=== PATIENT | female | born 1975 | race Caucasian/White ===

== ENCOUNTER → 2024-05-15 10:57 | Outpatient (AMB) | payer OTHER, SELFPAY ==
[2024-05-15 11:05] VITALS: BMI 28.0
--- NOTE | 2024-05-15 11:05 | AM.OFFVISNUR ---
Vital Signs 05/15/24 11:05 Height 5 ft 5 in Weight 168 lb 8 oz BMI 28.0 Intake Visit Reasons: DEPO Allergies seafood Allergy (Mild, Verified 05/07/24 10:33) Anaphylaxis treenuts Allergy (Mild, Uncoded 05/07/24 10:33) rash, anaphylaxis Nursing Note Renee is here today for her scheduled Depo-provera inj. She denies any problems or concerns. AG scheduled on 06/19/24 with AGNIESZKA Harris. Follow up in 12 wks for next inj. Office Procedures Depo Questionnaire If YES to any of the following questions, please consult a provider. Date of last injection: 05/15/24 Date of last gynecology exam: 06/07/23 Menstrual pattern since last injection has been: Not Applicable Irregular bleeding?: No Breast lumps or other breast changes?: No Changes in weight or appetite?: Yes (lost weight) Depression or changes in mood?: No Abnormal hair growth or loss?: No Skin problems (rash, acne, discoloration)?: No Pain at the injection site?: No Headaches?: No Nervousness?: No Abdominal pain or cramping?: No Dizziness or nausea?: No Fatigue or weakness?: No Decrease in sexual drive?: No Chest pain or shortness of breath?: No Swelling in arms or legs?: No Form completed by?: Paul Siu LPN Office Meds Depo-Provera 150 mg/mL intramuscular syringe Performing Provider: Bettina Harris CNM Performing Location: [facility] Administered by: Joana Siu LPN on 05/15/24 11:05 Dose Route Admin Location Dispensed Lot Number Expiration Date [facility] Insurance Verifier 150 mg IM rt. deltoid 1 mL [id number] 06/26/26 07592-708-67 [facility] Assessment & Plan Assessment & Plan Orders: Orders AMB Medroxyprogesterone Injection Patient Supplied Today Z30.42 - Encounter for surveillance of injectable contraceptive Medications: New Depo-Provera (medroxyprogesterone) 150 mg IM ONCE 1 mL 0RF NS Z30.42 - Encounter for surveillance of injectable contraceptive Coding Level of Care Code Established Pt Est Pt Level 1 (54574) Patient Type Established History Problem Focused Exam Problem Focused Medical Decision Making Straight Forward Time Spent (min) 20
--- OUTSIDE RECORDS SUMMARY | 2024-05-15 13:11 | XMS_ITS | Encounter Summary ---
Author Organization [facility] Address [address] [place] [address] Care Team Providers Care Supervisor Lens Generating Name Role Phone Reyna Catalan MD Primary Care Prov ider [facility], Pcp Primary Care Provider Unavailabl e Reason for Visit * Reason Onset Date Comments Faxed Refill 10/01/2021 Encounter Details Date Type Department Care Team Description 10/01/2021 Refill Adult Medicine [address] [address] Raissa Peterson PA-C Faxed Refill Social History Tobacco Use Types Packs/Day Years Used Date Smoking Tobacco: Never Smokeless Tobacco: Never Alcohol Use Standard Drinks/Week Comments No 0 (1 standard drink = 0.6 oz pur e alcohol) Sex Assigned at Date Recorded Not on file Job Start Date Occupation Industry Not on file Not on file Not on file documented as of this encounter Miscellaneous Notes * Telephone Encounter - Dee Pham - 10/04/2021 2:47 PM EDT Lab Results Component Value Date NA 139 08/24/2020 K 4.0 08/24/2020 CO2 30 08/24/2020 CL 106 08/24/2020 BUN 15 08/24/2020 CREAT 0.68 08/24/2020 GLU 109 11/03/2020 CA 9.2 08/24/2020 GFR > 60 08/24/2020 Pt will be short prior to visit * Telephone Encounter - Dee Pham - 10/01/2021 10:20 AM EDT Appt on 10/11 called to verify pt will not have enough until seen Last rx 09/07 x 30 (if she does refills can be done at visit) Ext [phone] * Telephone Encounter - Arlene Camp - 10/01/2021 9:46 AM EDT Patient would like script to be: E-PRESCRIBED/FAXED TO PHARMACY WHEN WAS THE PATIENT'S LAST APPOINTMENT IN ADULT MEDICINE? 08/24/21 WHEN WAS THE LAST TIME THE PATIENT SAW THEIR PCP? 07/09/[address] Daisy Sylvester Does patient have an upcoming appointment? Yes 10/11/21 (THE MEDICATION REQUESTED IS ON THE MED LIST ABOVE) All of the medications requested were on the CURRENT MEDS list Did you check the Pharmacy information above?: YES Patient wants: 30 -day supply Is this a mail order prescription request ? NO If the refill is from a FAXED refill request what is the RX # listed on the fax? [id number] Patients current insurance carrier is: Payor: KAVITA / Plan: PPO $0 WANDA [id number] / Product Type: PPO [id number] documented in this encounter Plan of Treatment Not on file documented as of this encounter Visit Diagnoses Not on filedocumented in this encounter Care Teams Supervisor Lens Generating Relationship Specialty Start Date End Date Reyna Catalan MD [address] [place] [address] PCP - General Internal Medicine 09/27/21 06/12/23 [facility], Pcp [address] [place] [address] PCP - General Internal Medicine 06/13/23 documented as of this encounter
--- OUTSIDE RECORDS SUMMARY | 2024-05-15 13:11 | XMS_ITS | Encounter Summary ---
Author Organization [facility] Address [address] [place] [address] Care Team Providers Care Wood Preparation Supervisor Name Role Phone Nguyen Banks MD Primary Care Provider Saravanan Beckett MD Primary Care Provider [phone] Reyna Catalan MD Primary Care Prov ider Evan Cervantes Primary Care Provider [phone] [facility], Pcp Primary Care Provider Unavailalexis gonzalez Reason for Visit * Reason Onset Date Comments refill request 10/05/2016 Encounter Details Date Type Department Care Team Description 10/05/2016 Refill [facility] [address] [place], [place] [id number] Brenda Santoro MD refill request Social History Tobacco Use Types Packs/Day Years [...] encounter Miscellaneous Notes * Telephone Encounter - Anastasia Aiken - 10/05/2016 12:35 PM EDT WHEN WAS THE PATIENTS LAST ANNUAL BRIDGE MANAGER EXAM? Post 11/17/15 Does patient have an upcoming appointment? Yes 11/25/16 (THE MEDICATION REQUESTED IS ON THE MED LIST ABOVE) Did you check the Pharmacy information above?: YES Indicate how soon the patient needs the script: BY THE END OF THE DAY Patient would like script to be: E-PRESCRIBED/FAXED TO PHARMACY Is the doctor here today?: YES Can the message wait until the doctor returns?: NO Has the patient been told that the prescription will not be filled until the end of the day? NO Payor: KAVITA / Plan: PPO $0 WANDA [id number] / Product Type: PPO [id number] documented in this encounter Plan of Treatment Not on file documented as of this encounter Visit Diagnoses Diagnosis Surveillance of previously prescribed contraceptive method Contraceptive surveillance, unspecified documented in this encounter Care Teams Wood Preparation Supervisor Relationship Specialty Start Date End Date Nguyen Banks MD PCP - General Internal Medicine 02/26/15 06/03/20 Saravanan Velarde MD [address] [place] [address] PCP - General Internal Medicine 06/04/20 09/06/21 Reyna Catalan MD [address] [place] [address] PCP - General Internal Medicine 09/27/21 06/12/23 Evan Cervantes [address] [place] [address] PCP - General Internal Medicine 09/07/21 09/26/21 Faith Stephens [address] [place] [address] PCP - General Internal Medicine 06/13/23 documented as of this encounter
--- OUTSIDE RECORDS SUMMARY | 2024-05-15 13:11 | XMS_ITS | Encounter Summary ---
Author Organization [facility] Address [address] [place] [address] Care Team Providers Care Safety Associate Name Role Phone Reyna Catalan MD Primary Care Prov ider [facility], Pcp Primary Care Provider Unavailabl e Reason for Visit * Reason Onset Date Comments E-prescribe Rx Request refill request 05/02/2023 Encounter Details Date Type Department Care Team Description 05/02/2023 Refill OBGYN - [place] [address] [place] [address] Albert Hopkins DO E-prescribe Rx Request; refill request Social History Tobacco Use Types [...] encounter Miscellaneous Notes * Telephone Encounter - Lelo Velez - 05/02/2023 8:42 AM EST WHEN WAS THE PATIENTS LAST ANNUAL PARADI TENDER EXAM? 03/11/22 Does patient have an upcoming appointment? No - SHE IS MOVING OUT OF [facility] AND WILL NOT NEED ANY ADDITIONAL MEDICATION. PLEASE CLOSE REQUEST (THE MEDICATION REQUESTED IS ON THE MED LIST ABOVE) Did you check the Pharmacy information above?: YES Indicate how soon the patient needs the script: BY THE END OF THE DAY Patient would like script to be: E-PRESCRIBED/FAXED TO PHARMACY Is the doctor here today?: NO Can the message wait until the doctor returns?: NO Has the patient been told that the prescription will not be filled until the end of the day? NO Payor: KAVITA / Plan: PPO $0 WANDA [id number] / Product Type: PPO [id number] documented in this encounter Plan of Treatment Not on file documented as of this encounter Visit Diagnoses Diagnosis Encounter for surveillance of injectable contraceptive Surveillance of other previously prescribed contraceptive method documented in this encounter Care Teams Safety Associate Relationship Specialty Start Date End Date Reyna Catalan MD [address] [place] [address] PCP - General Internal Medicine 09/27/21 06/12/23 [facility] [address] [address] PCP - General Internal Medicine 06/13/23 documented as of this encounter
--- OUTSIDE RECORDS SUMMARY | 2024-05-15 13:11 | XMS_ITS | Encounter Summary ---
Author Organization [facility] Address [address] [place] [address] Care Team Providers Care Singing Telegram Performer Name Role Phone Nguyen Banks MD Primary Care Provider Saravanan Beckett MD Primary Care Provider [phone] Reyna Catalan MD Primary Care Prov ider Evan Cervantes Primary Care Provider [phone] [facility], Pcp Primary Care Provider Angelina gonzalez Encounter Details Date Type Department Care Team Description 03/16/2015 Release of Information Medical Records [address] [place] [address] Abstract, Provider Social History Tobacco Use Types Packs/Day Years Used Date Smoking Tobacco: Never Smokeless Tobacco: Never Alcohol Use Standard Drinks/Week Comments No 0 (1 standard drink = 0.6 oz pur e alcohol) Sex Assigned at Date Recorded Not on file Job Start Date Occupation Industry Not on file Not on file Not on file documented as of this encounter Plan of Treatment Not on file documented as of this encounter Visit Diagnoses Not on filedocumented in this encounter Care Teams Singing Telegram Performer Relationship Specialty Start Date End Date Nguyen Banks MD PCP - General Internal Medicine 02/26/15 06/03/20 Saravanan Velarde MD [address] [place] [address] PCP - General Internal Medicine 06/04/20 09/06/21 Reyna Catalan MD [address] [place] [address] PCP - General Internal Medicine 09/27/21 06/12/23 Evan Cervantes [address] [place] [address] PCP - General Internal Medicine 09/07/21 09/26/21 [facility], Pcp [address] [place] [address] PCP - General Internal Medicine 06/13/23 documented as of this encounter
--- OUTSIDE RECORDS SUMMARY | 2024-05-15 13:11 | XMS_ITS | Encounter Summary ---
Author Organization [facility] Address [address] [place] [address] Care Team Providers Care Talent Acquisition Relationship Manager Name Role Phone Nguyen Banks MD Primary Care Provider Saravanan Beckett MD Primary Care Provider [phone] Reyna Catalan MD Primary Care Prov ider Evan Cervantes Primary Care Provider [phone] [facility], Pcp Primary Care Provider Angelina gonzalez Encounter Details Date Type Department Care Team Description 08/26/2016 Installation Tech Report Medical Records [address] [place] [address] Rehab, [facility] [address] [place] [address] Social History Tobacco Use Types Packs/Day Years [...] on filedocumented in this encounter Care Teams Talent Acquisition Relationship Manager Relationship Specialty Start Date End Date Nguyen Banks MD PCP - General Internal Medicine 02/26/15 06/03/20 Saravanan Velarde MD [address] [place] [address] [phone] PCP - General Internal Medicine 06/04/20 09/06/21 Reyna Catalan MD [address] [place] [address] [phone] PCP - General Internal Medicine 09/27/21 06/12/23 Evan Cervantes [address] [place] [address] PCP - General Internal Medicine 09/07/21 09/26/21 [facility], Faith [address] [place] [address] PCP - General Internal Medicine 06/13/23 documented as of this encounter
--- OUTSIDE RECORDS SUMMARY | 2024-05-15 13:11 | XMS_ITS | Encounter Summary ---
Author Organization [facility] Address [address] [place] [address] Care Team Providers Care Town Clerk Name Role Phone Nguyen Banks MD Primary Care Provider Saravanan Beckett MD Primary Care Provider [phone] Reyna Catalan MD Primary Care Prov ider Evan Cervantes Primary Care Provider [phone] [facility], Pcp Primary Care Provider Angelina gonzalez Encounter Details Date Type Department Care Team Description 07/08/2015 Telescope Maintenance Report Medical Records [address] [place] [address] Social History Tobacco Use Types Packs/Day Years [...] on filedocumented in this encounter Care Teams Town Clerk Relationship Specialty Start Date End Date Nguyen Banks MD PCP - General Internal Medicine 02/26/15 06/03/20 Saravanan Velarde MD [address] [place] [address] PCP - General Internal Medicine 06/04/20 09/06/21 Reyna Catalan MD [address] [place] [address] PCP - General Internal Medicine 09/27/21 06/12/23 Evan Cervantes [address] [place] [address] PCP - General Internal Medicine 09/07/21 09/26/21 [facility], Pcp [address] [place] [address] PCP - General Internal Medicine 06/13/23 documented as of this encounter
--- OUTSIDE RECORDS SUMMARY | 2024-05-15 13:11 | XMS_ITS | Encounter Summary ---
Author Organization [facility] Address [address] [place] [address] Care Team Providers Care Autism Specialist Name Role Phone Nguyen Banks MD Primary Care Provider Saravanan Beckett MD Primary Care Provider [phone] Reyna Catalan MD Primary Care Prov ider Evan Cervantes Primary Care Provider [phone] [facility], Pcp Primary Care Provider Angelina gonzalez Encounter Details Date Type Department Care Team Description 05/28/2015 Zika Virus Medical Records [address] [place] [address] Abstract, Provider Social History Tobacco Use Types [...] on filedocumented in this encounter Care Teams Autism Specialist Relationship Specialty Start Date End Date Nguyen Banks MD PCP - General Internal Medicine 02/26/15 06/03/20 Saravanan Velarde MD [address] [place] [address] PCP - General Internal Medicine 06/04/20 09/06/21 Reyna Catalan MD [address] [place] [address] PCP - General Internal Medicine 09/27/21 06/12/23 Evan Cervantes [address] [place] [address] PCP - General Internal Medicine 09/07/21 09/26/21 [facility], Pcp [address] [place] [address] PCP - General Internal Medicine 06/13/23 documented as of this encounter
--- OUTSIDE RECORDS SUMMARY | 2024-05-15 13:11 | XMS_ITS | Encounter Summary ---
Author Organization [facility] Address [address] [place] [address] Care Team Providers Care Director Of Officiating Name Role Phone Nguyen Banks MD Primary Care Provider Saravanan Beckett MD Primary Care Provider [phone] Reyna Catalan MD Primary Care Prov ider Evan Cervantes Primary Care Provider [phone] [facility], Pcp Primary Care Provider Angelina gonzalez Encounter Details Date Type Department Care Team Description 10/06/2015 Hospital Medical Records [address] [place] [id number] [place] [address] Social History Tobacco Use Types Packs/Day Years [...] on filedocumented in this encounter Care Teams Director Of Officiating Relationship Specialty Start Date End Date Nguyen Banks MD PCP - General Internal Medicine 02/26/15 06/03/20 Saravanan Velarde MD [address] [place] [address] [phone] PCP - General Internal Medicine 06/04/20 09/06/21 Reyna Catalan MD [address] [place] [address] [phone] PCP - General Internal Medicine 09/27/21 06/12/23 Evan Cervantes [address] [place] [address] PCP - General Internal Medicine 09/07/21 09/26/21 [facility], Pcp [address] [place] [address] PCP - General Internal Medicine 06/13/23 documented as of this encounter
--- OUTSIDE RECORDS SUMMARY | 2024-05-15 13:11 | XMS_ITS | Encounter Summary ---
Author Organization [facility] Address [address] [place] [address] Care Team Providers Care Piledriver Carpenter Name Role Phone Jack Seymour MD Primary Care Provider Unavail able Nguyen Banks MD Primary Care Provider UnavailSaravanan Gallardo MD Primary Care Provider [phone] Reyna Catalan MD Primary Care Prov ider Evan Cervantes Primary Care Provider [facility] Encounter Details Date Type Department Care Team Description 08/05/2013 Release of Information Medical Records [address] [place] [address] Abstract, Provider Social History Tobacco Use Types [...] on filedocumented in this encounter Care Teams Piledriver Carpenter Relationship Specialty Start Date End Date Jack Seymour MD PCP - General 11/27/1994 02/25/15 Nguyen Banks MD PCP - General Internal Medicine 02/26/15 06/03/20 Saravanan Velarde MD [address] [place] [address] PCP - General Internal Medicine 06/04/20 09/06/21 Reyna Catalan MD [address] [place] [address] PCP - General Internal Medicine 09/27/21 06/12/23 Evan Cervantes [address] [place], [place] [phone] PCP - General Internal Medicine 09/07/21 09/26/21 [facility], Pcp [address] [place] [address] PCP - General Internal Medicine 06/13/23 documented as of this encounter
--- OUTSIDE RECORDS SUMMARY | 2024-05-15 13:11 | XMS_ITS | Encounter Summary ---
Author Organization [facility] Address [address] [place] [address] Care Team Providers Care Equipment Operator/Laborer Name Role Phone Nguyen Banks MD Primary Care Provider Saravanan Beckett MD Primary Care Provider [phone] Reyna Catalan MD Primary Care Prov ider Evan Cervantes Primary Care Provider [phone] [facility], Pcp Primary Care Provider Angelina gonzalez Encounter Details Date Type Department Care Team Description 04/10/2019 Orders Only SALES & SERVICE ASSOCIATE - [address] [address] Pau Simeon CNM [address] [place] [address] Encounter for surveillance of injectable contraceptive Social History Tobacco Use Types Packs/Day Years [...] method documented in this encounter Care Teams Equipment Operator/Laborer Relationship Specialty Start Date End Date Nguyen Banks MD PCP - General Internal Medicine 02/26/15 06/03/20 Saravanan Velarde MD [address] [place] [address] [phone] PCP - General Internal Medicine 06/04/20 09/06/21 Reyna Catalan MD [address] [place] [address] PCP - General Internal Medicine 09/27/21 06/12/23 Evan Cervantes [address] [place] [address] PCP - General Internal Medicine 09/07/21 09/26/21 [facility], Pcp [address] [place] [address] PCP - General Internal Medicine 06/13/23 documented as of this encounter
--- OUTSIDE RECORDS SUMMARY | 2024-05-15 13:11 | XMS_ITS | Encounter Summary ---
Author Organization [facility] Address [address] [place] [address] Care Team Providers Care Candy Rolling Machine Operator Name Role Phone Reyna Catalan MD Primary Care Prov ider [facility], Pcp Primary Care Provider Unavailabl e Reason for Visit * Reason Comments E-prescribe Rx Request Encounter Details Date Type Department Care Team Description 05/22/2023 Refill Adult Medicine [facility] [address] [place] [address] Reyna Catalan MD [address] [place] [address] E-prescribe Rx Request Social History Tobacco Use Types Packs/Day Years [...] encounter Miscellaneous Notes * Telephone Encounter - Lynn Mendoza - 05/25/2023 1:40 PM EDT Please complete and send to POD when appt is booked * Telephone Encounter - Lynn Mendoza - 05/25/2023 1:39 PM EDT Patient would like script to be: E-PRESCRIBED/FAXED TO PHARMACY WHEN WAS THE PATIENT'S LAST APPOINTMENT IN ADULT MEDICINE? 01/20/23 WHEN WAS THE LAST TIME THE PATIENT SAW THEIR PCP? Same as above Does patient have an upcoming appointment? Patient was sent a My Chart request to set up an appointment as they are due. (THE MEDICATION REQUESTED IS ON THE MED LIST ABOVE) All of the medications requested were on the CURRENT MEDS list Did you check the Pharmacy information above?: YES Patient wants: 90 -day supply Is this a mail order prescription request ? NO If the refill is from a FAXED refill request what is the RX # listed on the fax? N/A Patients current insurance carrier is: Payor: KAVITA / Plan: PPO $0 WANDA [id number] / Product Type: PPO [id number] documented in this encounter Plan of Treatment Not on file documented as of this encounter Visit Diagnoses Not on filedocumented in this encounter Care Teams Candy Rolling Machine Operator Relationship Specialty Start Date End Date Reyna Catalan MD [address] [place] [address] PCP - General Internal Medicine 09/27/21 06/12/[address] [address] PCP - General Internal Medicine 06/13/23 documented as of this encounter
--- OUTSIDE RECORDS SUMMARY | 2024-05-15 13:11 | XMS_ITS | Encounter Summary ---
Author Organization [facility] Address [address] [place] [address] Care Team Providers Care Watchmaking Teacher Name Role Phone Nguyen Banks MD Primary Care Provider Saravanan Beckett MD Primary Care Provider Reyna Catalan MD Primary Care Prov ider Evan Cervantes Primary Care Provider [phone] [facility], Pcp Primary Care Provider Angelina gonzalez Encounter Details Date Type Department Care Team Description 05/06/2015 Veteran Appeals Reviewer Report Medical Records [address] [place] [address] Mckinley Menendez [address] [place] [address] [id number] Social History Tobacco Use Types Packs/Day Years [...] on filedocumented in this encounter Care Teams Watchmaking Teacher Relationship Specialty Start Date End Date Nguyen Banks MD PCP - General Internal Medicine 02/26/15 06/03/20 Saravanan Velarde MD [address] [place] [address] [phone] PCP - General Internal Medicine 06/04/20 09/06/21 Reyna Catalan MD [address] [place] [address] PCP - General Internal Medicine 09/27/21 06/12/23 Evan Cervantes [address] [place] [address] [phone] PCP - General Internal Medicine 09/07/21 09/26/21 [facility], Pcp [address] [place] [address] PCP - General Internal Medicine 06/13/23 documented as of this encounter
--- OUTSIDE RECORDS SUMMARY | 2024-05-15 13:11 | XMS_ITS | Encounter Summary ---
Author Organization [facility] Address [address] [place] [address] Care Team Providers Care Coronary Care Unit Nurse Name Role Phone Saravanan Velarde MD Primary Care Provider [phone] Reyna Catalan MD Primary Care Prov ider Evan Cervantes Primary Care Provider [phone] [facility], Pcp Primary Care Provider Unavailabl e Reason for Visit * Reason Onset Date Comments refill request 11/19/2020 Encounter Details Date Type Department Care Team Description 11/19/2020 Refill OBGYN - [address] [address] Albert oHpkins DO refill request Social History Tobacco Use Types Packs/Day Years Used Date Smoking Tobacco: Never Smokeless Tobacco: Never Alcohol Use Standard Drinks/Week Comments No 0 (1 standard drink = 0.6 oz pur e alcohol) Sex Assigned at Date Recorded Not on file Job Start Date Occupation Industry Not on file Not on file Not on file COVID-19 Exposure Response Date Recorded In the last month, have you been in contact with someone who was confirmed or suspected to have Coronavirus / COVID-19? No / Unsure 11/17/2020 1:05 PM EDT documented as of this encounter Miscellaneous Notes * Telephone Encounter - Anastasia Pruitt - 11/19/2020 11:53 AM EDT WHEN WAS THE PATIENTS LAST ANNUAL DATA MANAGEMENT ENGINEER EXAM? 02/06/2021 Does patient have an upcoming appointment? Yes 02/05/2021 (THE MEDICATION REQUESTED IS ON THE MED LIST ABOVE) Did you check the Pharmacy information above?: YES Indicate how soon the patient needs the script: PHU Patient would like script to be: E-PRESCRIBED/FAXED TO PHARMACY Is the doctor here today?: YES Can the message wait until the doctor returns?: NO Has the patient been told that the prescription will not be filled until the end of the day? YES Payor: KAVITA / Plan: PPO $0 WANDA [id number] / Product Type: PPO [id number] documented in this encounter Plan of Treatment Not on file documented as of this encounter Visit Diagnoses Diagnosis Encounter for surveillance of injectable contraceptive Surveillance of other previously prescribed contraceptive method documented in this encounter Care Teams Coronary Care Unit Nurse Relationship Specialty Start Date End Date Saravanan Velarde MD [address] [place] [address] PCP - General Internal Medicine 06/04/20 09/06/21 Reyna Catalan MD [address] [place] [id number] PCP - General Internal Medicine 09/27/21 06/12/23 Evan Cervantes [address] [place] [address] PCP - General Internal Medicine 09/07/21 09/26/21 Faith Stephens [address] [place] [id number] PCP - General Internal Medicine 06/13/23 documented as of this encounter
--- OUTSIDE RECORDS SUMMARY | 2024-05-15 13:11 | XMS_ITS | Encounter Summary ---
Author Organization [facility] Address [address] [place] [address] Care Team Providers Care Pattern Chain Maker Supervisor Name Role Phone Jack Seymour MD Primary Care Provider Unavail able Nguyen Banks MD Primary Care Provider UnavailSaravanan Gallardo MD Primary Care Provider [phone] Reyna Catalan MD Primary Care Prov ider Evan Cervantes Primary Care Provider [phone] [facility] Encounter Details Date Type Department Care Team Description 06/30/2013 [facility] Medical Records [address] [place], [place] [id number] [facility] Social History Tobacco Use Types Packs/Day Years [...] on filedocumented in this encounter Care Teams Pattern Chain Maker Supervisor Relationship Specialty Start Date End Date Jack Seymour MD PCP - General 11/27/1994 02/25/15 Nguyen Banks MD PCP - General Internal Medicine 02/26/15 06/03/20 Saravanan Velarde MD [address] [place] [address] [id number] PCP - General Internal Medicine 06/04/20 09/06/21 Reyna Catalan MD [address] [place] [id number] PCP - General Internal Medicine 09/27/21 06/12/23 Evan Cervantes [address] [place], [place] [phone] PCP - General Internal Medicine 09/07/21 09/26/21 [facility], Pcp [address] [place] [address] PCP - General Internal Medicine 06/13/23 documented as of this encounter
== END ==
LOC: HO.HWS 10:57
PROVIDERS: PCP Family Medicine; Visit Provider Advanced Practice Midwife
DX: Z30.42 Encounter for surveillance of injectable contraceptive (principal)

== ENCOUNTER → 2024-05-15 10:57 | Outpatient (BNVA) | payer OTHER, SELFPAY | PROVIDERS: PCP Family Medicine; Visit Provider Advanced Practice Midwife | DX: Z30.42 Encounter for surveillance of injectable contraceptive (principal) | CPT/HCPCS: 96372; 99211; J1050 ==

== ENCOUNTER 2024-05-28 11:40 | Outpatient (AMB) | payer OTHER, SELFPAY ==
--- NOTE | 2024-05-28 11:41 | A.OFFVIS_ITS ---
Vital Signs 05/28/24 11:53 Height 5 ft 5 in Weight 165 lb 12.602 oz BMI 27.6 BP 126/68 Blood Pressure Location Rt brachial Position Sitting Pulse 64 Pulse Source Pulse Oximeter Pulse Oximetry (%) 99 Oxygen Delivery Method Room Air Intake Visit Reasons: pre colonoscopy Intake Note: NEW PATIENT for [place] screening, initial. Chief Complaint; FMHx Maternal Grandmother. No GI concerns at this time. Merchandise Carrier Required: No Accompanied by: Self / Same As Patient Allergies tree nut Allergy (Severe, Verified 05/28/24 11:42) Anaphylaxis seafood Allergy (Mild, Verified 05/07/24 10:33) Anaphylaxis HPI HPI pre colonoscopy: Details: 46 year old? female with past medical history of asthma, hypertension is here today for pre colonoscopy screening.? Patient was sent to us by her PCP.? This is her first colonoscopy screening.? Patient denies any gastrointestinal symptoms in the past or at present.? Patient reports maternal grandmother was diagnosed with CRC. Patient never had anesthesia in the past. Negative for history of sleep apnea.? Denies any history of cardiac, renal, pulmonary, or hepatic disease.?? No history of infectious? diseases like hepatitis A, B, C, HIV or tuberculosis.? Patient is not on any anticoagulation [facility] Medical History Depression Anxiety Acute eczema Gestational diabetes Arthritis High blood pressure Asthma Surgical History [place] teeth extracted Family History Mother Diabetes Endometrial cancer Father High blood pressure High cholesterol Diabetes Maternal Grandmother Colon cancer Social History Household Members: Spouse and Children Housing: House Are you a primary critical care nurse specialist to a significant other at home: No Do you presently have visiting nurse or other home services: No 75 years or older and lives alone: No Alcohol intake: never Patient Tobacco Use Status: Never used Tobacco e-Cigarette/Vaping Use: Never Used service: No Current occupational status: employed Current occupation: book keeper Cognitive needs: No Hearing needs: No Vision needs: No Female Reproductive History Menstrual Age of Menarche: 12 Review of Systems Const Denies weight gain and Denies weight loss ENT Reports no additional complaints, Denies dysphagia and Denies odynophagia Card Reports no additional complaints Resp Reports no additional complaints GI Denies abdominal pain, Denies belching, Denies melena, Denies bloating, Denies change in bowel habits, Denies dysphagia, Denies excessive flatus, Denies dyspepsia, Denies heartburn, Denies diarrhea, Denies loose stools, Denies naus ea, Denies odynophagia and Denies vomiting Reports no additional complaints Musc Reports no additional complaints Neuro Reports no additional complaints Psych Reports no additional complaints Endo Reports no additional complaints Physical Exam Vital Signs: Last Vital Signs Pulse 64 05/28/24 11:53 BP 126/68 05/28/24 11:53 Pulse Ox 99 05/28/24 11:53 Oxygen Delivery Method Room Air 05/28/24 11:53 BMI result Body Mass Index 27.6 Const General: healthy appearing, no acute distress and well developed Nutritional Appearance: well nourished Orientation/consciousness: patient oriented x3 Resp Effort & Inspection: normal respiratory effort, able to speak in complete sentences, no tracheal deviation and symmetric chest movement Auscultation: clear to auscultation bilaterally Cardio Rate: regular rate GI Inspection: Yes normal to inspection and No distended Palpation (GI): Soft to palpation, not firm, nontender and No hepatosplenomegaly present Auscultation: normal bowel sounds General: Yes no CVA tenderness Back/Spine/Pelvis Back: no CVA tenderness Skin General skin exam: elasticity normal, turgor normal and dry skin Neuro General: patient oriented x3 Psych Appearance: grossly normal Mental Status: mental status grossly normal Assessment & Plan Assessment & Plan (1) Screening for colon cancer: Code(s): Z12.11 - Encounter for screening for malignant neoplasm of colon Category: Medical Plan Patient denies any GI, cardiac or respiratory symptoms.? Never had anesthesia in the past.? Denies any history of sleep apnea.? No history infectious diseases in the past or present.? Not on any anticoagulation therapy.? Family history of CRC. Patient denies melena, hematochezia, unintentional weight loss or ribbon like stools.? Discussed at length the pre-procedure,? prep, diet & medications as well as what to expect prior, during and after the procedure.?? Stressed the importance of good bowel prep.? Recommended the use of Vaseline or Calmoseptine OTC & baby wipes with bowel movements to promote comfort.? ?Patient verbalizes understanding and agrees to plan of care.? She was given the opportunity to ask questions and all questions answered.? We will see her after the procedure.? Medications: New bisacodyl (Dulcolax (bisacodyl)) take 4 tabs at noon the day before your colonoscopy 20 mg (4 x 5 mg) PO ONCE 1 day 4 tabs 0RF Z12.11 - Encounter for screening for malignant neoplasm of colon polyethylene glycol 3350 (Miralax) As directed by gastroenterology department at [facility] 238 grams PO ONCE 238 grams 0RF Z12.11 - Encounter for screening for malignant neoplasm of colon Coding Level of Care Code New Pt Level 3 (45097) Diagnoses Screening for colon cancer Z12.11 Time Spent (min) 40 Comment 30 minutes spent with patient and additional 10 minutes spent reviewing her r ecords
[2024-05-28 11:53] VITALS: BP 126/68; PULSE 64; O2SAT 99; BMI 27.6
== END 2024-05-28 13:25 | disposition home or self-care (01) ==
LOC: HO.HGI 11:41
PROVIDERS: PCP Family Medicine; Visit Provider Nurse Practitioner Family
DX: Z01.818 Encounter for other preprocedural examination (principal); Z12.11 Encounter for screening for malignant neoplasm of colon
CPT/HCPCS: S0285

== ENCOUNTER → 2024-05-28 11:40 | Outpatient (BNVA) | payer OTHER, SELFPAY | PROVIDERS: PCP Family Medicine; Visit Provider Nurse Practitioner Family ==

== ENCOUNTER 2024-05-29 08:27 | Outpatient (REF) | payer OTHER, SELFPAY ==
[2024-05-29 11:59] LABS: Alanine Aminotransferase 16 U/L (0-31); Albumin Level 4.1 g/dL (3.5-5.0); Alkaline Phosphatase 48 U/L (39-117); Anion Gap 9 (12-20); Aspartate Amino Transferase 20 U/L (5-31); Bilirubin Total 0.7 mg/dL (0.0-1.0); Blood Urea Nitrogen 13 mg/dL (9-16); Calcium 9.3 mg/dL (8.4-10.2); Carbon Dioxide 26 mmol/L (22-29); Chloride 109 mmol/L (96-108); Cholesterol 144 mg/dL (<200); Estimated Glomerular Filt Rate > 60; Glucose Fasting 99 mg/dL (60-99); HDL Cholesterol 37 mg/dL (>40); LDL Cholesterol Calculated 98 mg/dL (<100); Potassium 4.1 mmol/L (3.3-5.1); Sodium 140 mmol/L (135-145); Total Protein 7.3 g/dL (6.5-8.0); Triglycerides 46 mg/dL (<150)
[2024-05-29 14:50] LABS: Creatinine Urine 220.74 mg/dL; Microalbum/Creatinine Ratio Ur 14.9 ug/mg cr (<30)
== END 2024-05-29 08:28 | disposition home or self-care (01) ==
LOC: HO.WFDLDS 08:27
PROVIDERS: Visit Provider Family Medicine
DX: Z00.00 Encounter for general adult medical examination without abnormal findings (principal); R73.03 Prediabetes; E78.00 Pure hypercholesterolemia, unspecified; I10 Essential (primary) hypertension
CPT/HCPCS: 36415; 80053; 80061; 82043; 82570

== ENCOUNTER 2024-05-29 11:32 | Outpatient (REF) | payer OTHER, SELFPAY | END 2024-05-29 11:33 | disposition home or self-care (01) | LOC: HO.MAMMO 11:32 | PROVIDERS: PCP Family Medicine; Visit Provider Family Medicine | DX: Z12.31 Encounter for screening mammogram for malignant neoplasm of breast (principal) | CPT/HCPCS: 77063; 77067 ==

== ENCOUNTER → 2024-05-29 11:45 | Outpatient (BNV) | payer OTHER, SELFPAY | PROVIDERS: PCP Family Medicine; Visit Provider Internal Medicine | DX: Z12.31 Encounter for screening mammogram for malignant neoplasm of breast (principal) | CPT/HCPCS: 77063; 77067 ==

== ENCOUNTER 2024-06-05 09:21 | Outpatient (AMB) | payer OTHER, SELFPAY ==
--- NOTE | 2024-06-05 09:23 | MHC.PC.OV ---
Vital Signs 06/05/24 09:28 Height 5 ft 5 in Weight 166 lb BMI 27.6 BP 116/68 Blood Pressure Location Lt brachial Position Sitting Respiration 14 Pulse 70 Pulse Source Pulse Oximeter Temp 98.5 F Temp Source Oral Pulse Oximetry (%) 98 Oxygen Delivery Method Room Air Intake Visit Reasons: f/u hypertension Intake Note: patient is scheduled for htn and lab review with pcp Electric Operator Required: No Allergies tree nut Allergy (Severe, Verified 06/05/24 09:23) Anaphylaxis seafood Allergy (Mild, Verified 06/05/24 09:23) Anaphylaxis Tobacco use date assessed: 04/18/23 Dental Screening Dental Screen Date: 04/18/23 HPI f/u hypertension HPI Details 48 y/o female presents to f/u hypertension. Blood pressure today 116/68, 70p. She is on atenolol 50mg daily, clonidine 0.1mg b.i.d. Labs drawn 05/29/24. Reviewed labs with pt. Triglycerides 46. TC 144. LDL 98. HDL low at 37. Prior A1c 5.9% 03/06/24. A1c today 06/05/24 is 5.9%. [facility] Medical History Depression Anxiety Acute eczema Gestational diabetes Arthritis High blood pressure Asthma Surgical History [place] teeth extracted Family History Mother Diabetes Endometrial cancer Father High blood pressure High cholesterol Diabetes Maternal Grandmother Colon cancer Social History Household Members: Spouse and Children Housing: House Are you a primary primary care provider to a significant other at home: No Do you presently have visiting nurse or other home services: No 75 years or older and lives alone: No Alcohol intake: never Patient Tobacco Use Status: Never used Tobacco e-Cigarette/Vaping Use: Never Used service: No Current occupational status: employed Current occupation: book keeper Cognitive needs: No Hearing needs: No Vision needs: No Female Reproductive History Menstrual Age of Menarche: 12 Questionnaire Thrive Questionnaire Date Thrive assessed: 02/29/24 I am a: Patient What is your living situation today?: I have a steady place to live Within the past 12 months, did the food you bought not last and you didn't have the money to get more?: Never true Within the past 12 months, did you worry whether your food would run out before you got money to buy more?: Never true Do you have trouble paying for medicines?: No Do you have trouble getting transportation to medical appointments?: No Do you have trouble paying your heating and electricity bill?: No Do you have trouble taking care of your child, family member or friend?: No Do you have trouble with day-to-day activities such as bathing, preparing meals, shopping, managing finances, etc.?: No Are you currently unemployed and looking for a job?: No Are you interested in more education?: No Please select the resources that you would like help with: None Currently or been in a relationship where the following occur: No concerns reported THRIVE Score: 0 AUDIT C Alcohol Use Questionnaire (AUDIT-C) 2. How many drinks containing alcohol do you have on a typical day when you are drinking?: 1 or 2 Total Score: 0 FRANNY-7 AMB Questionnaire FRANNY-7 Date FRANNY - 7 assessed: 04/18/23 Source: Developed by Drs. Ez Perera, Shila Delgado, Stephen Roque and colleagues, with an educational emily from [employer]. Review of Systems Const Denies chills, Denies fatigue, Denies fever(s), Denies headache(s) and Denies weakness ENT Denies dizziness and Denies headache(s) Card Denies dyspnea Resp Denies cough, Denies dyspnea, Denies wheezing and Denies other (shortness of breath) Musc Denies numbness and Denies tingling Neuro Denies dizziness, Denies headache(s), Denies numbness, Denies tingling and Denies weakness Psych Denies anxiety and Denies depression Endo Denies fatigue Aller/Immun Denies wheezing Physical exam (Primary Care) Vital Signs: Last Vital Signs Temp 98.5 F 06/05/24 09:28 Pulse 70 06/05/24 09:28 Resp 14 06/05/24 09:28 BP 116/68 06/05/24 09:28 Pulse Ox 98 06/05/24 09:28 Oxygen Delivery Method Room Air 06/05/24 09:28 BMI result Body Mass Index 27.6 Tobacco/Smoking Status: Tobacco use Status Tobacco use date assessed 04/18/23 06/05/24 09:24 Patient Tobacco Use Status Never used Tobacco 06/05/24 09:24 e-Cigarette/Vaping Use Never Used 06/05/24 09:24 Thrive Assessment: Date of Thrive Assessment Date Thrive assessed 02/29/24 06/05/24 09:24 Currently or been in a relationship where the following occur: No concerns reported Const General: well developed; No acute distress Nutritional Appearance: well nourished Orientation/consciousness: patient oriented x3 HENMT Head: Yes normocephalic and Yes atraumatic Eyes General: appearance normal, both eyes and all related structures Pupils: Equal, round and reactive pupils present EOM: EOMs intact bilaterally Resp Effort & Inspection: normal respiratory effort Neuro General: patient oriented x3 and gait normal Cranial nerves: Yes Equal, round and reactive pupils present Psych Affect: normal affect Coding Level of Care Code Est Pt Level 4 (75161) Diagnoses High blood pressure I10 Pre-diabetes R73.03 Elevated LDL cholesterol level E78.00 Low HDL (under 40) E78.6 Assessment & Plan Assessment & Plan (1) High blood pressure: Code(s): I10 - Essential (primary) hypertension Category: Medical Plan: She?is?on?atenolol. Blood?pressure?116/68.??Good?control.??Goal?is?less?than?140/90 Continue?current?medication (2) Pre-diabetes: Code(s): R73.03 - Prediabetes Category: Medical Plan: A1c?had?risen?from?5.7%?to?5.9%?at?last?measurement. Today?A1c?is 5.7% Improved. Still in PreDM range Work?at?diet?lower?in?sugars?and?starches Continue?exercise (3) Elevated LDL cholesterol level: Code(s): E78.00 - Pure hypercholesterolemia, unspecified Category: Medical Plan: LDL?had?been?elevated. She?has?been?working?on?dietary?changes?and?she?is?exercising LDL?now?at?goal?of?less?than?100 Continue?working?at?diet?exercise (4) Low HDL (under 40): Code(s): E78.6 - Lipoprotein deficiency Category: Medical Plan: HDL?has?decreased?from?42-37?and?is?slightly?low Continue?or?increase?exercise Increase?Byers?threes?diet?and?we?discussed?flaxseed/jasmyn seed in diet which?may?raise?HDL?without?significant?LDL increase.
[2024-06-05 09:28] VITALS: BP 116/68; PULSE 70; RESP 14; TEMP 36.9; O2SAT 98; BMI 27.6
== END 2024-06-05 10:45 | disposition home or self-care (01) ==
LOC: HO.HMCFM 09:21
PROVIDERS: PCP Family Medicine; Visit Provider Family Medicine
DX: R73.03 Prediabetes (principal)

== ENCOUNTER → 2024-06-05 09:21 | Outpatient (BNVA) | payer OTHER, SELFPAY | PROVIDERS: PCP Family Medicine; Visit Provider Family Medicine | DX: I10 Essential (primary) hypertension (principal); R73.03 Prediabetes; E78.00 Pure hypercholesterolemia, unspecified; E78.6 Lipoprotein deficiency; Z79.899 Other long term (current) drug therapy | CPT/HCPCS: 83036 ==

== ENCOUNTER 2024-08-07 07:59 | Outpatient (AMB) | payer OTHER, SELFPAY ==
--- NOTE | 2024-08-07 08:04 | MHC.OFFVIS ---
Vital Signs 08/07/24 08:09 Height 5 ft 5 in Weight 166 lb BMI 27.6 BP 116/70 Intake Visit Reasons: Family planning / pt in depo Molded Goods Inspector Trimmer: Molded Goods Inspector Trimmer Present (latha) Accompanied by: Self / Same As Patient Allergies tree nut Allergy (Severe, Verified 06/05/24 09:23) Anaphylaxis seafood Allergy (Mild, Verified 06/05/24 09:23) Anaphylaxis Is last menstrual period known: No Post menopausal: No Patient : No HPI Comments Details: Presenting to discuss different options of control. The patient has been on Depo-Provera for the last 9 years last Depo-Provera shot was on 05/15/2024 with no complaints Last mammogram in 06/21 was BI-RADS 1 [facility] Medical History Depression Anxiety Acute eczema Gestational diabetes Arthritis High blood pressure Asthma Surgical History [place] teeth extracted Family History Mother Diabetes Endometrial cancer Father High blood pressure High cholesterol Diabetes Maternal Grandmother Colon cancer Social History Household Members: Spouse and Children Housing: House Are you a primary emergency care attendant to a significant other at home: No Do you presently have visiting nurse or other home services: No 75 years or older and lives alone: No Alcohol intake: never Patient Tobacco Use Status: Never used Tobacco e-Cigarette/Vaping Use: Never Used service: No Current occupational status: employed Current occupation: book keeper Cognitive needs: No Hearing needs: No Vision needs: No Female Reproductive History Menstrual Age of Menarche: 12 control method: none and progesterone injection (Depo) Total pregnancies: 2 Full term: 2 Date of last pap smear: 06/07/23 (negative pap smear,negative hpv ) Date of Mammogram: 05/29/24 (bi rad 1) Review of Systems Const All systems reviewed & are unremarkable except as noted in HPI and below Reports as per HPI and Reports no additional complaints GI Reports no additional complaints Reports no additional complaints Physical Exam Vital Signs: Last Vital Signs BP 116/70 08/07/24 08:09 BMI result Body Mass Index 27.6 Assessment & Plan Assessment & Plan (1) Family planning: Code(s): Z30.09 - Encounter for other general counseling and advice on contraception Category: Social Hx Plan: Discussed with the patient the different options of control including control pills/Nuvaring, DMPA, different types of IUD ?s ( cu vs progesterone) , sterilization. All the pros, cons, risks and benefits of each were discussed with the patient. The patient decided to go ahead with Mirena IUD, so a more detailed discussion was carried on including mechanism of action, risks (infection, uterine perforation, failure with ectopic , septic AB, ovarian cyst and pelvic pain, increased breast cancer risk and others) benefits (efficient contraceptive method, others), Depo-Provera 150 mg sent to the pharmacy and will be given today, GC/CG will be taken and instructions given the patient to schedule an appointment for Mirena IUD insertion in 90 days. All questions answered, the patient verbalized understanding Medications: New medroxyprogesterone (Depo-Provera) 150 mg IM [id number] 1 mL 0RF Coding Level of Care Code Est Pt Level 3 (94238) Diagnoses Family planning Z30.09
--- OUTSIDE RECORDS SUMMARY | 2024-08-07 08:04 | XMS_ITS | Encounter Summary ---
Author Organization [facility] Address [address] [place] [address] Care Team Providers Care Policy And Planning Manager Name Role Phone Nguyen Banks MD Primary Care Provider Saravanan Beckett MD Primary Care Provider [phone] Reyna Catalan MD Primary Care Prov ider Evan Cervantes Primary Care Provider [phone] [facility], Pcp Primary Care Provider Angelina gonzalez Encounter Details Date Type Department Care Team Description 07/08/2015 Dip Unit Operator Report Medical Records [address] [place] [address] Social History Tobacco Use Types Packs/Day Years [...] on filedocumented in this encounter Care Teams Policy And Planning Manager Relationship Specialty Start Date End Date Nguyen Banks MD PCP - General Internal Medicine 02/26/15 06/03/20 Saravanan Velarde MD [address] [place] [address] PCP - General Internal Medicine 06/04/20 09/06/21 Reyna Catalan MD [address] [place] [address] PCP - General Internal Medicine 09/27/21 06/12/23 Evan Cervantes [address] [place] [address] PCP - General Internal Medicine 09/07/21 09/26/21 [facility], Pcp [address] [place] [address] PCP - General Internal Medicine 06/13/23 documented as of this encounter
[2024-08-07 08:09] VITALS: BP 116/70; BMI 27.6
--- NOTE | 2024-08-07 11:59 | AM.OFFVISNUR ---
Vital Signs 08/07/24 08:09 Height 5 ft 5 in Weight 166 lb BMI 27.6 BP 116/70 Intake Visit Reasons: Family planning / pt in depo Allergies tree nut Allergy (Severe, Verified 08/07/24 09:06) Anaphylaxis seafood Allergy (Mild, Verified 08/07/24 09:06) Anaphylaxis Office Procedures Depo Questionnaire If YES to any of the following questions, please consult a provider. Date of last injection: 05/15/24 Date of last gynecology exam: 08/07/24 Menstrual pattern since last injection has been: Light Irregular bleeding?: No Breast lumps or other breast changes?: No Changes in weight or appetite?: No Depression or changes in mood?: No Abnormal hair growth or loss?: No Skin problems (rash, acne, discoloration)?: No Pain at the injection site?: No Headaches?: No Nervousness?: No Abdominal pain or cramping?: No Dizziness or nausea?: No Fatigue or weakness?: No Decrease in sexual drive?: No Chest pain or shortness of breath?: No Swelling in arms or legs?: No Form completed by?: Paul Siu LPN Depo Questionnaire If YES to any of the following questions, please consult a provider. Date of last injection: 05/15/24 Date of last gynecology exam: 08/07/24 Irregular bleeding?: No Breast lumps or other breast changes?: No Changes in weight or appetite?: No Depression or changes in mood?: No Abnormal hair growth or loss?: No Skin problems (rash, acne, discoloration)?: No Pain at the injection site?: No Headaches?: No Nervousness?: No Abdominal pain or cramping?: No Dizziness or nausea?: No Fatigue or weakness?: No Decrease in sexual drive?: No Chest pain or shortness of breath?: No Swelling in arms or legs?: No Form completed by?: THOM Ozuna Office Meds Depo-Provera 150 mg/mL intramuscular syringe Performing Provider: Elfego Ferreira MD Performing Location: [facility] Administered by: Joana Siu LPN on 08/07/24 11:59 Dose Route Admin Location Dispensed Lot Number Expiration Date [facility] Boiling [employer] 150 mg IM left deltoid 1 mL [id number] 06/26/25 29380-882-98 [employer] Assessment & Plan Assessment & Plan (1) Family planning: Code(s): Z30.09 - Encounter for other general counseling and advice on contraception Category: Social Hx Orders: Orders AMB Medroxyprogesterone Injection Patient Supplied Today Z30.09 - Encounter for other general counseling and advice on contraception Medications: New Depo-Provera (medroxyprogesterone) 150 mg IM ONCE 1 mL 0RF NS Z30. - Encounter for other general counseling and advice on contraception medroxyprogesterone (Depo-Provera) 150 mg IM [id number] 1 mL 0RF Coding Diagnoses Family planning Z30.09
== END 2024-08-07 10:41 | disposition home or self-care (01) ==
LOC: HO.HWS 08:00
PROVIDERS: PCP Family Medicine; Visit Provider Obstetrics & Gynecology
DX: Z30.09 Encounter for other general counseling and advice on contraception (principal)
CPT/HCPCS: 99213

== ENCOUNTER → 2024-08-07 07:59 | Outpatient (BNVA) | payer OTHER, SELFPAY | PROVIDERS: PCP Family Medicine; Visit Provider Obstetrics & Gynecology | DX: Z30.42 Encounter for surveillance of injectable contraceptive (principal); Z00.00 Encounter for general adult medical examination without abnormal findings; I10 Essential (primary) hypertension; Z79.899 Other long term (current) drug therapy | CPT/HCPCS: 96372; J1050 ==

== ENCOUNTER 2024-08-07 08:58 | Outpatient (AMB) | payer OTHER, SELFPAY ==
--- NOTE | 2024-08-07 09:05 | MHC.PC.OV ---
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 09:06) Anaphylaxis seafood Allergy (Mild, Verified 08/07/24 09:06) Anaphylaxis Medication List - Last Reconciled 08/07/24 by Thiago Machado MD albuterol sulfate 90 mcg/actuation (Ventolin HFA) 2 puffs inhalation Q4-6H PRN 30 days atenolol 50 mg PO DAILY 90 days bisacodyl (Dulcolax (bisacodyl)) 20 mg (4 x 5 mg) PO ONCE 1 day cholecalciferol (vitamin D3) 250 mcg PO DAILY clonidine HCl 0.1 mg PO BID epinephrine (EpiPen) 0.3 mg IM Q4H PRN escitalopram oxalate mg PO flaxseed oil 1,000 mg PO DAILY medroxyprogesterone (Depo-Provera) 150 mg IM [id number] medroxyprogesterone (Depo-Provera) 150 mg IM [id number] multivitamin 1 tab PO DAILY polyethylene glycol 3350 (Miralax) 238 grams PO ONCE triamcinolone acetonide 2 sprays intranasal DAILY Tobacco use date assessed: 04/18/23 Dental Screening Dental Screen Date: 04/18/23 HPI annual physical HPI Details 48 y/o female presents for a CPE with f/u labs and health maintenance. No recent labs to review. Blood pressure today 120/70, 81p. She is on atenolol 50mg daily. She reports last mammogram was May and was fine. HPI Comments History of Present Illness Details Documentation assistance for Thiago Machado MD, was provided by Armen Gandhi, German Tutor on 08/07/2024 at 9:35 AM JASMIN. Tay, Dr. Machado, have read, observed, and verified documentation. [facility] Medical History Depression Anxiety Acute eczema Gestational diabetes Arthritis High blood pressure Asthma Surgical History [place] teeth extracted Family History Mother Diabetes Endometrial cancer Father High blood pressure High cholesterol Diabetes Maternal Grandmother Colon cancer Social History Household Members: Spouse and Children Housing: House Are you a primary child care team lead to a significant other at home: No Do you presently have visiting nurse or other home services: No 75 years or older and lives alone: No Alcohol intake: never Patient Tobacco Use Status: Never used Tobacco e-Cigarette/Vaping Use: Never Used service: No Current occupational status: employed Current occupation: book keeper Cognitive needs: No Hearing needs: No Vision needs: No Female Reproductive History Menstrual Age of Menarche: 12 Questionnaire Thrive Questionnaire Date Thrive assessed: 02/29/24 I am a: Patient What is your living situation today?: I have a steady place to live Within the past 12 months, did the food you bought not last and you didn't have the money to get more?: Never true Within the past 12 months, did you worry whether your food would run out before you got money to buy more?: Never true Do you have trouble paying for medicines?: No Do you have trouble getting transportation to medical appointments?: No Do you have trouble paying your heating and electricity bill?: No Do you have trouble taking care of your child, family member or friend?: No Do you have trouble with day-to-day activities such as bathing, preparing meals, shopping, managing finances, etc.?: No Are you currently unemployed and looking for a job?: No Are you interested in more education?: No Please select the resources that you would like help with: None Currently or been in a relationship where the following occur: No concerns reported THRIVE Score: 0 FRANNY-7 AMB Questionnaire FRANNY-7 Date FRANNY - 7 assessed: 04/18/23 Source: Developed by Drs. Ez Perera, Shila Delgado, Stephen Roque and colleagues, with an educational emily from [employer]. Review of Systems Const Denies chills, Denies fatigue, Denies fever(s), Denies headache(s) and Denies weakness Eyes Denies change in vision ENT Denies dizziness, Denies headache(s), Denies hearing loss, Denies nasal congestion, Denies sinus pain, Denies sinus pressure and Denies sore throat Card Denies chest pain, Denies lightheadedness, Denies dyspnea and Denies other (palpitations) Resp Denies cough, Denies dyspnea and Denies wheezing GI Denies abdominal pain, Denies melena, Denies hematochezia, Denies change in bowel habits, Denies dyspepsia and Denies nausea Denies hematuria and Denies dysuria Musc Denies abnormal gait, Denies myalgias, Denies arthralgias, Denies numbness and Denies tingling Skin/Breast Denies rash, Denies unusual bruising and Denies wounds Neuro Denies abnormal gait, Denies dizziness, Denies headache(s), Denies memory loss, Denies numbness, Denies Sensory deficit (Neuro), Denies tingling and Denies weakness Psych Denies anxiety, Denies depression and Denies memory loss Endo Denies cold intolerance, Denies fatigue, Denies heat intolerance, Denies polydipsia and Denies polyuria Ramsey/Lymph Denies easy bleeding and Denies easy bruising Aller/Immun Denies wheezing Physical exam (Primary Care) Vital Signs: Last Vital Signs Temp 97.9 F 08/07/24 09:08 Pulse 81 08/07/24 09:08 Resp 14 08/07/24 09:08 BP 120/70 08/07/24 09:08 Pulse Ox 98 08/07/24 09:08 Oxygen Delivery Method Room Air 08/07/24 09:08 BMI result Body Mass Index 27.2 Tobacco/Smoking Status: Tobacco use Status Tobacco use date assessed 04/18/23 08/07/24 09:12 Patient Tobacco Use Status Never used Tobacco 08/07/24 09:12 e-Cigarette/Vaping Use Never Used 08/07/24 09:12 Thrive Assessment: Date of Thrive Assessment Date Thrive assessed 02/29/24 08/07/24 09:12 Currently or been in a relationship where the following occur: No concerns reported Const General: no acute distress, well developed, alert and awake Nutritional Appearance: well nourished Orientation/consciousness: patient oriented x3 HENMT Head: Yes normocephalic and Yes atraumatic Ears: hearing grossly normal bilaterally and TM's normal bilaterally General nose exam: Normal external nose present and Normal nares present Mouth: Normal oral and palatal mucosa present and moist mucous membranes Teeth and gingiva: dentition normal Throat: Yes posterior oropharynx normal Eyes General: appearance normal, both eyes and all related structures Pupils: Equal, round and reactive pupils present and Pupil accommodation reflex normal EOM: EOMs intact bilaterally Neck Neck: Yes normal visual inspection, Yes no lymphadenopathy and Yes trachea midline Thyroid: Thyroid normal Carotids: no bruits Lymphatic: no lymphadenopathy noted Chest Chest palpation & inspection: normal inspection of the chest Resp Effort & Inspection: normal respiratory effort Auscultation: clear to auscultation bilaterally Cardio Rate: regular rate Rhythm: regular rhythm Heart sounds: S1 normal heart sound present, S2 normal heart sound present, no gallops, no murmurs and no rubs Bruits: no abdominal aortic bruits and no carotid bruits GI Palpation (GI): No Abdominal aortic bruit present, Soft to palpation, nontender, No hepatosplenomegaly present and No Rebound tenderness present Auscultation: normal bowel sounds General: Yes no CVA tenderness Back/Spine/Pelvis Back: no CVA tenderness Cervical Spine: cervical ROM normal and No Cervical spine tenderness Thoracic/Lumbar Spine: thoraco-lumbar ROM normal, No pain with thoraco-lumbar ROM, No thoracic spinal tenderness and No lumbar spinal tenderness Skin Lesions: no lesions Rashes: no rashes Trauma: no lacerations or abrasions Wounds: no wounds Nails: normal Neuro General: patient oriented x3 Cranial nerves: Yes Equal, round and reactive pupils present Cognition (Neuro): normal cognition Gait exam (Neuro): Normal gait present Motor exam (neuro): 5/5 motor strength present throughout Sensory Exam: No Sensory deficit (Neuro) Deep tendon reflexes (DTR's): Right patellar reflex intensity grade: 2+ and Left patellar reflex intensity grade: 2+ Extrem General: Yes normal to inspection and No edema Psych Appearance: grossly normal Affect: normal affect Attitude: cooperative Thought process: Normal thought process present Coding Level of Care Code Est Pt Level 3 (44878) Est Pt Prev Care 40-64y(81496) Diagnoses Adult general medical exam Z00.00 High blood pressure I10 Breast cancer screening by mammogram Z12.31 Screening for colon cancer Z12.11 Cervical cancer screening Z12.4 Assessment & Plan Assessment & Plan (1) Adult general medical exam: Code(s): Z00.00 - Encounter for general adult medical examination without abnormal findings Category: Medical Plan: 48-year-old?female?presents?for?complete?physical?exam Encouraged?healthy?diet?with?active?lifestyle?and?plenty?of?exercise (2) High blood pressure: Code(s): I10 - Essential (primary) hypertension Category: Medical Plan: Blood?pressure?is?well?controlled.??Goal?is?less?than?140/90 Continue?current?medications (3) Breast cancer screening by mammogram: Code(s): Z12.31 - Encounter for screening mammogram for malignant neoplasm of breast Category: Medical Plan: Mammogram?in?May?was?negative?for?malignancies Will?continue?annual?screening (4) Screening for colon cancer: Code(s): Z12.11 - Encounter for screening for malignant neoplasm of colon Category: Medical Plan: Patient?had?initial?consultation?but?has?not?been?scheduled?colonoscopy?yet. Advised?her?to?call?to?get?her?appointment?scheduled (5) Cervical cancer screening: Comment: Pap done 06/07/2023= negative with negative HPV. Code(s): Z12.4 - Encounter for screening for malignant neoplasm of cervix Category: Medical Plan: Followed?by?[facility] Continue?routine?screening Medications: Changed From epinephrine (EpiPen) 0.3 mg IM Q4H PRN To epinephrine (EpiPen) 0.3 mg (0.3 mL) IM Q4H 30 days PRN 2 ea 4RF anaphylaxis
[2024-08-07 09:08] VITALS: BP 120/70; PULSE 81; RESP 14; TEMP 36.6; O2SAT 98; BMI 27.2
== END 2024-08-07 09:41 | disposition home or self-care (01) ==
LOC: HO.HMCFM 08:59
PROVIDERS: PCP Family Medicine; Visit Provider Family Medicine
DX: Z00.00 Encounter for general adult medical examination without abnormal findings (principal); I10 Essential (primary) hypertension; Z12.31 Encounter for screening mammogram for malignant neoplasm of breast; Z12.11 Encounter for screening for malignant neoplasm of colon

== ENCOUNTER 2024-10-30 10:59 | Outpatient (AMB) | payer OTHER, SELFPAY ==
--- NOTE | 2024-10-30 11:07 | MHC.OFFVIS ---
Intake Visit Reasons: mirena insertion Class C Driver Required: No Information Interpreted: non-clinical & clinical Corpsman: Corpsman Present (Altagracia Hendrickson) Accompanied by: Self / Same As Patient Allergies tree nut Allergy (Severe, Verified 10/30/24 11:18) Anaphylaxis seafood Allergy (Mild, Verified 10/30/24 11:18) Anaphylaxis HPI Comments Details: Presenting for Mirena IUD insertion [facility] Medical History Depression Anxiety Acute eczema Gestational diabetes Arthritis High blood pressure Asthma Surgical History [place] teeth extracted Family History Mother Diabetes Endometrial cancer Father High blood pressure High cholesterol Diabetes Maternal Grandmother Colon cancer Social History Household Members: Spouse and Children Housing: House Are you a primary career development specialist to a significant other at home: No Do you presently have visiting nurse or other home services: No 75 years or older and lives alone: No Alcohol intake: never Patient Tobacco Use Status: Never used Tobacco e-Cigarette/Vaping Use: Never Used service: No Current occupational status: employed Current occupation: book keeper Cognitive needs: No Hearing needs: No Vision needs: No Female Reproductive History Menstrual Age of Menarche: 12 control method: progestin IUCD Office Procedures IUD Insert/Removal Details Details: The patient is presenting for Mirena IUD insertion Urine test was done in the office and was negative; All the contraindications were excluded. The following possible complications were discussed with the patient: Intrauterine , Ectopic , Sepsis, Pelvic Infection, Irregular Bleeding and Amenorrhea, Perforation, Expulsion, Ovarian Cysts, Breast Cancer, The following adverse effects were discussed with the patient: alteration of menstrual bleeding pattern, including: unscheduled uterine bleeding decreased uterine bleeding increased scheduled uterine bleeding female genital tract bleeding ,amenorrhea , genital discharge , vulvovaginitis , breast pain , benign ovarian cyst and associated complications , dysmenorrhea , Gastrointestinal disorders abdominal/pelvic pain, headache/migraine , back pain , acne , depression Alternative options were discussed with the patient including but not limited: control pills, patch, NuvaRing, Depo-medroxyprogesterone acetate, Nexplanon, copper IUD, sterilization, vasectomy, others The procedure was explained in detail to patient , at the end patient signed the informed consent obtained. A no touch technique was used throughout the procedure. A speculum was placed into vagina and cervix was cleaned with betadine). A tenaculum was placed. A plastic sound was advanced through the external and internal os until it reached the fundus of the uterus, the depth was 8 cm. The sound was then withdrawn. The IUD was loaded in a sterile manner and advanced into position. The string was visualized and cut to 3 cm. Tenaculum site hemostatic. All instruments removed from vagina. Patient tolerated the procedure well. NO complications were noted. Patient was instructed to call for fever over 100.4, significant pain unrelieved by Motrin, IUD expulsion, heavy bleeding, or abnormal discharge. In addition, the following clinical considerations were discussed with the patient to call for removal: A stroke or heart attack ,Very severe or migraine headaches ,Unexplained fever ,Yellowing of the skin or whites of the eyes, as these may be signs of serious liver problems , or suspected , Pelvic pain or pain during sex ,HIV positive seroconversion in herself or her partner , Possible exposure to sexually transmitted infections Unusual vaginal discharge or genital sores , severe vaginal bleeding or bleeding that lasts a long time, or if she misses a menstrual period, Inability to feel Mirena's threads Counseled the patient that the IUD does not protect against STI's, recommended use of condoms for the first 7 days post insertion and explained to the patient that condoms are recommended for patients at risk for sexually transmitted infections. Informed the patient that Mirena IUD is FDA approved for 8 years for contraception for 5 years for the treatment of heavy menses Instructed the patient to schedule a Follow up appointment in 4 to 6 weeks following insertion. This note was generated with a voice recognition program. Some errors may have been overlooked during the review of this note. Sometimes these errors may affect the content or meaning of a given sentence. [id number] Insertion Procedure code (CPT) selection complete Office Meds Mirena 21 mcg/24 hr (up to 8 years) 52 mg intrauterine device Performing Provider: Elfego Ferreira MD Performing Location: [facility] Documented (not given) by: Elfego Ferreira MD on 10/30/24 11:19 Dose Route Admin Location Dispensed Lot Number Expiration Date [employer] Program And Research Coordinator 1 device intrauterine ea Total Dispensed Waste n/a n/a Assessment & Plan Assessment & Plan (1) Encounter for insertion of Mirena IUD: Code(s): Z30.430 - Encounter for insertion of intrauterine contraceptive device Category: Medical Plan Mirena IUD inserted, see procedure note Orders: Orders AMB IUD Insertion/Removal - Practice Supplied Today Z30.430 - Encounter for insertion of intrauterine contraceptive device AMB HCG Urine Test Today Z32.02 - Encounter for test, result negative Medications: New Mirena (levonorgestrel) 1 device intrauterine ONCE 1 ea 0RF IUD insertion NS Z30.430 - Encounter for insertion of intrauterine contraceptive device Coding Level of Care Code Procedure Only Diagnoses Encounter for insertion of Mirena IUD Z30.430 CPT Codes Details - CPT: 65340-PER Insertion ([id number])
== END 2024-10-30 11:23 | disposition home or self-care (01) ==
LOC: HO.HWS 11:00
PROVIDERS: PCP Family Medicine; Visit Provider Obstetrics & Gynecology
DX: Z30.430 Encounter for insertion of intrauterine contraceptive device (principal); Z32.02 Encounter for pregnancy test, result negative
CPT/HCPCS: 58300

== ENCOUNTER 2024-10-30 10:59 | Outpatient (REF) | payer OTHER, SELFPAY ==
[2024-10-30 18:02] LABS: CT PCR NOT DETECTED (Not Detect.); NG PCR NOT DETECTED (Not Detect.)
== END 2024-10-30 11:00 | disposition home or self-care (01) ==
LOC: HO.LNP 10:59
PROVIDERS: PCP Family Medicine; Visit Provider Obstetrics & Gynecology
DX: Z30.430 Encounter for insertion of intrauterine contraceptive device (principal); Z32.02 Encounter for pregnancy test, result negative
CPT/HCPCS: 58300; 81025; 87491; 87591; J7298

== ENCOUNTER 2024-11-15 09:15 | Day surgery (SDC) | payer OTHER, SELFPAY ==
--- OUTSIDE RECORDS SUMMARY | 2024-09-26 14:05 | XMS_ITS ---
Author Name [facility] Organization Unknown Care Team Organization Name Specialty Phone Email Start Date End Da te [facility] Gemma Wagner Primary [facility] 11/03/2022 10/16/19 [facility] Mariaa Dominguez Primary [facility] 01/04/2022 10/16/2023
--- NOTE | 2024-11-13 13:12 | HO.ANESPROP2 ---
Documented by User: Kate Padgett NP 11/13/24 13:12 HPI - Anesthesia Eval Consult details Narrative: 49 yr old female for colonoscopy PMFSH Active Problems Active Problems: All Active Problems Encounter for insertion of Mirena IUD (Acute) Encounter for IUD insertion (Acute) Family planning (Acute) Low HDL (under 40) (Acute) Moderate persistent asthma (Acute) Pre-diabetes (Acute) Wrist pain (Acute) Elevated fasting glucose (Acute) Elevated LDL cholesterol level (Acute) Screening for colon cancer (Acute) Breast cancer screening by mammogram (Acute) Adult general medical exam (Acute) Cervical cancer screening (Acute) On Depo-Provera for contraception (Acute) Well woman exam with routine gynecological exam (Acute) Reactive airway disease (Acute) Tree nut allergy (Acute) Seafood allergy (Acute) Laboratory exam ordered as part of routine general medical examination (Acute) Cough (Acute) High blood pressure (Acute) Asthma (Acute) Past Medical History Medical History Depression Anxiety Acute eczema Gestational diabetes Arthritis High blood pressure Asthma Family History Family History Mother Diabetes Endometrial cancer Father High blood pressure High cholesterol Diabetes Maternal Grandmother Colon cancer Surgical History Surgical History [place] teeth extracted Social History Social History Household Members: Spouse and Children Housing: House Are you a primary career representative to a significant other at home: No Do you presently have visiting nurse or other home services: No Alcohol intake: never Patient Tobacco Use Status: Never used Tobacco e-Cigarette/Vaping Use: Never Used Use of substances other than those prescribed or required for medical reasons: No Are you DNR?: No Advance Directives: No Advance Directives Information Provided: Yes : No Poor oral hygiene: No service: No Current occupational status: employed Current occupation: book keeper Cognitive needs: No Hearing needs: No Vision needs: No Meds Allergies Allergy/AdvReac Type Severity Reaction Status Date / Time tree nut Allergy Severe Anaphylaxis Verified 10/30/24 11:18 seafood Allergy Mild Anaphylaxis Verified 10/30/24 11:18 Home Medications ?Medication ?Instructions ?Recorded ?Confirmed ?Last Taken ?Type medroxyprogesterone 150 mg/mL 150 mg IM [id number] 04/18/23 08/07/24 Unknown History intramuscular suspension (Depo-Provera) multivitamin 1 tab PO DAILY 04/18/23 08/07/24 Unknown History cholecalciferol (vitamin D3) 250 250 mcg PO DAILY 06/07/23 08/07/24 Unknown History mcg (10,000 unit) capsule clonidine HCl 0.1 mg tablet 0.1 mg PO BID 08/02/23 08/07/24 Unknown History escitalopram oxalate 10 mg tablet mg PO 08/02/23 08/07/24 11/15/24 History triamcinolone acetonide 55 mcg 2 spray intranasal DAILY 05/28/24 08/07/24 Unknown History nasal spray aerosol flaxseed oil 1,000 mg capsule 1,000 mg PO DAILY 08/07/24 08/07/24 Unknown History levonorgestrel (Mirena) intrauterine 10/30/24 Unknown History Documented by User: Alisson Heard MD 11/15/24 10:11 [facility] Past Medical History Medical History Depression Anxiety Acute eczema Gestational diabetes Arthritis High blood pressure Asthma Family History Family History Mother Diabetes Endometrial cancer Father High blood pressure High cholesterol Diabetes Maternal Grandmother Colon cancer Family history of problems with anesthesia: No Surgical History Surgical History [place] teeth extracted History of Problems with Anesthesia: No Social History Social History Household Members: Spouse and Children Housing: House Are you a primary career representative to a significant other at home: No Do you presently have visiting nurse or other home services: No Alcohol intake: never Patient Tobacco Use Status: Never used Tobacco e-Cigarette/Vaping Use: Never Used Use of substances other than those prescribed or required for medical reasons: No Are you DNR?: No Advance Directives: No Advance Directives Information Provided: Yes : No Poor oral hygiene: No service: No Current occupational status: employed Current occupation: book keeper Cognitive needs: No Hearing needs: No Vision needs: No Meds Allergies Allergy/AdvReac Type Severity Reaction Status Date / Time tree nut Allergy Severe Anaphylaxis Verified 10/30/24 11:18 seafood Allergy Mild Anaphylaxis Verified 10/30/24 11:18 Home Medications ?Medication ?Instructions ?Recorded ?Confirmed ?Last Taken ?Type medroxyprogesterone 150 mg/mL 150 mg IM [id number] 04/18/23 08/07/24 Unknown History intramuscular suspension (Depo-Provera) multivitamin 1 tab PO DAILY 04/18/23 08/07/24 Unknown History cholecalciferol (vitamin D3) 250 250 mcg PO DAILY 06/07/23 08/07/24 Unknown History mcg (10,000 unit) capsule clonidine HCl 0.1 mg tablet 0.1 mg PO BID 08/02/23 08/07/24 Unknown History escitalopram oxalate 10 mg tablet mg PO 08/02/23 08/07/24 11/15/24 History triamcinolone acetonide 55 mcg 2 spray intranasal DAILY 05/28/24 08/07/24 Unknown History nasal spray aerosol flaxseed oil 1,000 mg capsule 1,000 mg PO DAILY 08/07/24 08/07/24 Unknown History levonorgestrel (Mirena) intrauterine 10/30/24 Unknown History Exam Airway Mallampati Class: II TM Dist: >3cm Neck ROM: Full Heart: rrr Lungs: cta Assessment and Plan Assessment Anesthesia Assessment: Anesthesia Plan Discussed and Chart Reviewed Final Anesthetic Review Family History of Problems with Anesthesia: No History of Problems with Anesthesia: No NPO: Yes ASA Class: II Final Preanesthetic Review: No Changes in Pt Med Stat, Meds/Allgs Chart Reviewed and Consent Obtained/Reviewed Patient Risk: Low Procedure Risk: Low Anesthetic Plan Anesthetic Plan: MAC: Disposition: Standard PACU
--- NOTE | 2024-11-15 08:37 | P.HPSUR_ITS ---
Pre-Procedural Eval Section A - 24 Hr Update-Section A only Date of Service: 11/15/24 The patient is an INPATIENT: No The patient has been examined within 24 hours of the surgical procedure. The History & Physical has been completed within 30 days and I have reviewed it.: No Section B - Complete if H&P > 30 days Chief Complaint: screening, FH of colon cancer Relevant Family History (Specify if Yes): Yes Relevant Social History: None Present Medications: see Short Stay Collaborative assessment Medical History: Significant History (Depression Anxiety Acute eczema Gestational diabetes Arthritis High blood pressure Asthma) History of Previous Operations: Relevant previous surgery/procedure and date(s) ([place] teeth extracted) Allergies: Allergies Allergy/AdvReac Type Severity Reaction Status Date / Time tree nut Allergy Severe Anaphylaxis Verified 10/30/24 11:18 seafood Allergy Mild Anaphylaxis Verified 10/30/24 11:18 Review of Systems Sugical H&P ROS: Negative: Constitution, Cardiovascular, Respiratory and Gastrointestinal Exam Surgical H&P Exam: Normal: Heart, Normal: Lungs, Normal: Extremities and Normal: Abdomen Plan Diagnosis/Plan: Unchanged I have reviewed the history and physical and performed a pertinent physical examination on my patient. No changes have occurred unless specified. Time Spent With Patient Time: Total time managing care of this patient today ____ minutes.
[2024-11-15 09:39] VITALS: BMI 27.2
[2024-11-15 09:41] VITALS: BP 128/78; PULSE 66; RESP 16; TEMP 36.7; O2SAT 98
[2024-11-15 09:52] LABS: UPreg QC Valid YES
[2024-11-15] MEDS: Lactated Ringers 1,000 ML 100 ML IVCONT (09:52)
--- NOTE | 2024-11-15 10:56 | P.OPN-COLO_ITS ---
Colonoscopy Operative Note Operative Note Date of Service: 11/15/24 Narrative: COLONOSCOPY TILL CECUM WITH SNARE POLYPECTOMY Pre-op diagnosis: Colon cancer screening, family history of colon cancer (Mat GM in her 80's). Post-op diagnosis:? colon polyp, Diverticulosis. Endoscopist:? Ainsley Cummins MD Anesthesia:?MAC Consent: Indications for the procedure and potential complications of bleeding, perforation, reaction to medications and missed diagnosis were discussed with the patient and informed consent was obtained. Instrument: Olympus PCF H 190 L variable stiffness pediatric colonoscope Monitoring: Vital signs and clinical assessment, intermittent blood pressure monitoring, continuous EKG monitoring, Pulse oximetry and Carbon Dioxide monitoring were done throughout the procedure. Please see anesthesia flowsheet. Colon withdrawl time was 17 minutes. Procedure: The patient was placed in the left lateral decubitis position and pre-procedure medications were administered. After a digital rectal examination of the ano-rectum, the video colonoscope was inserted into the rectum and advanced through the colon to the cecum. The colonoscope was slowly withdrawn in a retrograde panoramic fashion and the colon mucosa was carefully examined including a retroflexed view of the rectum. Findings and interventions are described below. Procedure Difficulty: Colon was long and there was some loop formation. LLQ pressure was applied to intubate the cecum Findings: Terminal Ileum: Not evaluated Cecum: Normal Ascending Colon: Normal Transverse Colon: Normal Descending Colon: Normal Sigmoid Colon: Moderate diverticulosis Rectum: A 5-6 mm diminutive appearing polyp in the distal rectum - removed with a cold snare Ano-rectum: Normal Colon preparation: Excellent, after copious irrigation. Gardner Bowel Preparation Scale Right colon; 3 Transverse colon: 3 Left colon; 3 (0 = Unprepared colon segment with mucosa not seen due to solid stool that cannot be cleared. 1 = Portion of mucosa of the colon segment seen, but other areas of the colon segment not well seen due to staining, residual stool and/or opaque liquid. 2 = Minor amount of residual staining, small fragments of stool and/or opaque liquid, but mucosa of colon segment seen well. 3 = Entire mucosa of colon segment seen well with no residual staining, small fragments of stool or opaque liquid) Impression and Post Procedure Diagnosis: Colonoscopy Findings: One small polyp was removed Moderate diverticulosis seen in the sigmoid colon Plan: I will send a letter with biopsy results. Repeat Colonoscopy in 5 years if polyps are adenomatous and 10 year if polyps are hyperplastic. Above findings were reviewed with the patient and relevant handouts were given and the discharge area.
[2024-11-15 10:57] VITALS: BP 87/49; PULSE 61; RESP 16; TEMP 36.8; O2SAT 99
[2024-11-15 11:15] VITALS: BP 115/67; PULSE 60; RESP 17; TEMP 36.7; O2SAT 99
== END 2024-11-15 11:34 | disposition home or self-care (01) ==
PROVIDERS: PCP Family Medicine; Visit Provider Internal Medicine Gastroenterology
PROC: 0DJD8ZZ Inspection of Lower Intestinal Tract, Via Natural or Artificial Opening Endoscopic (ICD-10-PCS; CPT 45378; principal; 2024-11-15 10:30)
DX: Z12.11 Encounter for screening for malignant neoplasm of colon (principal); K62.1 Rectal polyp; K57.30 Diverticulosis of large intestine without perforation or abscess without bleeding; K64.8 Other hemorrhoids; I10 Essential (primary) hypertension; J45.909 Unspecified asthma, uncomplicated; L30.9 Dermatitis, unspecified; F32.A Depression, unspecified; F41.9 Anxiety disorder, unspecified; Z79.899 Other long term (current) drug therapy; Z91.018 Allergy to other foods; Z91.013 Allergy to seafood
CPT/HCPCS: 45385; 81025; 88305; J2704

== ENCOUNTER → 2024-11-15 09:15 | Outpatient (BNV) | payer OTHER, SELFPAY | PROVIDERS: PCP Family Medicine; Visit Provider Internal Medicine Gastroenterology | DX: Z12.11 Encounter for screening for malignant neoplasm of colon (principal); K63.5 Polyp of colon; K57.90 Diverticulosis of intestine, part unspecified, without perforation or abscess without bleeding; Z80.0 Family history of malignant neoplasm of digestive organs | CPT/HCPCS: 45385 ==

== ENCOUNTER 2024-11-27 09:34 | Outpatient (AMB) | payer OTHER, SELFPAY ==
--- NOTE | 2024-11-27 09:35 | A.OFFPC_ITS ---
Vital Signs 11/27/24 09:41 Height 5 ft 5 in Weight 169 lb 2 oz BMI 28.1 BP 127/67 Blood Pressure Location Rt brachial Position Sitting Respiration 16 Pulse 69 Pulse Source Pulse Oximeter Temp 98.2 F Temp Source Oral Pulse Oximetry (%) 98 Oxygen Delivery Method Room Air Intake Visit Reasons: f/u lipids, labs Intake Note: patient here for follow up on lipids and labs and HTN Humidifier Attendant Required: No Is last menstrual period known: No Post menopausal: No Patient : No Allergies tree nut Allergy (Severe, Verified 11/27/24 09:40) Anaphylaxis seafood Allergy (Mild, Verified 11/27/24 09:40) Anaphylaxis Medication List - Last Reconciled 11/27/24 by Thiago Machado MD albuterol sulfate 90 mcg/actuation (Ventolin HFA) 2 puffs inhalation Q4-6H PRN 30 days atenolol 50 mg PO DAILY 90 days cholecalciferol (vitamin D3) 250 mcg PO DAILY clonidine HCl 0.1 mg PO BID epinephrine (EpiPen) 0.3 mg (0.3 mL) IM Q4H PRN 30 days escitalopram oxalate mg PO flaxseed oil 1,000 mg PO DAILY levonorgestrel (Mirena) intrauterine multivitamin 1 tab PO DAILY triamcinolone acetonide 2 sprays intranasal DAILY Tobacco use date assessed: 11/27/24 Dental Screening Dental Screen Date: 11/27/24 Did you have a dental visit in the last 12 months?: Yes Did you have a dental problem in the last 6 months where you did not have access to dental care?: No Was dental information given to patient?: Patient has dentist HPI f/u lipids, labs HPI0 Details 49 y/o female presents to f/u lipids, la bs. Prior A1c 5.9%. A1c today 11/27/24 5.7%. Pt notes she has been trying to watch her diet. No recent labs to review. BP today 127/67, 69p. She is on atenolol 50mg daily. Reports some eye twitching which she notes she has been worried about. HPI Comments History of Present Illness Details Documentation assistance for Thiago Machado MD, was provided by Armen Gandhi,? Computer Networking Instructor Adjunct on 11/27/2024 at 10:06 AM EST. I, Dr. Machado, have read, observed, and verified documentation. ?? PFSH Medical History Depression Anxiety Acute eczema Gestational diabetes Arthritis High blood pressure Asthma Surgical History [place] teeth extracted Family History Mother Diabetes Endometrial cancer Father High blood pressure High cholesterol Diabetes Maternal Grandmother Colon cancer Social History Household Members: Spouse and Children Housing: House Are you a primary medicare compliance auditor to a significant other at home: No Do you presently have visiting nurse or other home services: No 75 years or older and lives alone: No Alcohol intake: never Patient Tobacco Use Status: Never used Tobacco e-Cigarette/Vaping Use: Never Used Second Hand Smoke Exposure: No Patient : No service: No Current occupational status: employed Current occupation: book keeper Current occupational exposures/hazards: No Cognitive needs: No Hearing needs: No Vision needs: No Female Reproductive History Menstrual Age of Menarche: 12 Questionnaire PHQ-9 Over the last 2 weeks, how often have you been bothered by any of the following problems? 1. Little interest or pleasure in doing things: not at all 2. Feeling down, depressed, or hopeless: not at all 3. Trouble falling or staying asleep, or sleeping too much: not at all 4. Feeling tired or having little energy: several days 5. Poor appetite or overeating: not at all 6. Feeling bad about yourself - or that you are a failure or have let yourself or your family down: not at all 7. Trouble concentrating on things, such as reading the newspaper or watching television: not at all 8. Moving or speaking so slowly that other people could have noticed. Or the opposite - being so fidgety or restless that you have been moving around a lot more than usual: not at all 9. Thoughts that you would be better off or of hurting yourself in some way: not at all Total score: 1 Source: Developed by Drs. Ez Perera, Shila Delgado, Stephen Roque and colleagues, with an educational emily from [employer]. Thrive Questionnaire Date Thrive assessed: 10/31/24 I am a: Patient What is your living situation today?: I have a steady place to live Within the past 12 months, did the food you bought not last and you didn't have the money to get more?: Never true Within the past 12 months, did you worry whether your food would run out before you got money to buy more?: Never true Do you have trouble paying for medicines?: No Do you have trouble getting transportation to medical appointments?: No Do you have trouble paying your heating and electricity bill?: No Do you have trouble taking care of your child, family member or friend?: No Do you have trouble with day-to-day activities such as bathing, preparing meals, shopping, managing finances, etc.?: No Are you currently unemployed and looking for a job?: No Are you interested in more education?: No Please select the resources that you would like help with: None Currently or been in a relationship where the following occur: No concerns reported THRIVE Score: 0 FRANNY-7 AMB Questionnaire FRANNY-7 Date FRANNY - 7 assessed: 04/18/23 Source: Developed by Drs. Ez Perera, Shila Delgado, Stephen Roque and colleagues, with an educational emily from [employer]. Review of Systems Const Denies chills, Denies fatigue, Denies fever(s), Denies headache(s) and Denies weakness ENT Denies dizziness and Denies headache(s) Card Denies dyspnea Resp Denies cough, Denies dyspnea, Denies wheezing and Denies other (shortness of breath) Musc Denies numbness and Denies tingling Neuro Denies dizziness, Denies headache(s), Denies numbness, Denies tingling and Denies weakness Psych Denies anxiety and Denies depression Endo Denies fatigue Aller/Immun Denies wheezing Physical exam (Primary Care) Vital Signs: Last Vital Signs Temp 98.2 F 11/27/24 09:41 Pulse 69 11/27/24 09:41 Resp 16 11/27/24 09:41 BP 127/67 11/27/24 09:41 Pulse Ox 98 11/27/24 09:41 Oxygen Delivery Method Room Air 11/27/24 09:41 BMI result Body Mass Index 28.1 Tobacco/Smoking Status: Tobacco use Status Tobacco use date assessed 11/27/24 11/27/24 09:44 Patient Tobacco Use Status Never used Tobacco 11/27/24 09:37 e-Cigarette/Vaping Use Never Used 11/27/24 09:37 PHQ-9: PHQ-9 Score PHQ-9: Total score 1 11/27/24 09:37 Thrive Assessment: Date of Thrive Assessment Date Thrive assessed 10/31/24 11/27/24 09:37 Currently or been in a relationship where the following occur: No concerns reported Const General: well developed; No acute distress Nutritional Appearance: well nourished Orientation/consciousness: patient oriented x3 HENMT Head: Yes normocephalic and Yes atraumatic Eyes General: appearance normal, both eyes and all related structures Pupils: Equal, round and reactive pupils present EOM: EOMs intact bilaterally Resp Effort & Inspection: normal respiratory effort Neuro General: patient oriented x3 and gait normal Cranial nerves: Yes Equal, round and reactive pupils present Psych Affect: normal affect Coding Level of Care Code Est Pt Level 4 (58670) Diagnoses High blood pressure I10 Pre-diabetes R73.03 Elevated LDL cholesterol level E78.00 Eye twitch G24.5 Assessment & Plan Assessment & Plan (1) High blood pressure: Code(s): I10 - Essential (primary) hypertension Category: Medical Plan: Patient is on atenolol Blood pressure 127/67. Controlled. Goal is less than 140/90 Continue current medication (2) Pre-diabetes: Code(s): R73.03 - Prediabetes Category: Medical Plan: A1c continues to improve from 5.9% to 5.7%. Still in early pre diabetes range Continue working at a diet low in sugars and starches (3) Elevated LDL cholesterol level: Code(s): E78.00 - Pure hypercholesterolemia, unspecified Category: Medical Plan: HDL had been too low and her LDL cholesterol was okay at last check Encouraged exercise Will continue monitor (4) Eye twitch: Code(s): G24.5 - Blepharospasm Category: Medical Plan: Hydrate well Can use 1 electrolyte drink per day. Regular meals Can try some magnesium prior to bed She will know if this persists. Medications: New epinephrine (EpiPen 2-John) 0.3 mg (0.3 mL) IM Q4H 30 days PRN 2 ea 2RF anaphyla xis epinephrine (EpiPen 2-John) 0.3 mg (0.3 mL) IM Q4H PRN 2 ea 2RF anaphylaxis 30 days magnesium oxide 400 mg (2 x 200 mg magnesium) PO QPM 60 tabs 0RF 30 days Discontinued epinephrine (EpiPen) Discontinued Reason: Doctor's Order 0.3 mg (0.3 mL) IM Q4H 30 days PRN 2 ea 4RF anaphylaxis
[2024-11-27 09:41] VITALS: BP 127/67; PULSE 69; RESP 16; TEMP 36.8; O2SAT 98; BMI 28.1
--- OUTSIDE RECORDS SUMMARY | 2024-11-27 10:27 | XMS_ITS | Encounter Summary ---
Author Organization [facility] Address [address] [place] [address] Care Team Providers Care Loadmaster Name Role Phone Reyna Catalan MD Primary Care Prov ider [facility], Pcp Primary Care Provider Unavailabl e Encounter Details Date Type Department Care Team Description 01/19/2023 Pt. Non Urgent Medical Question Adult Medicine [address] [address] Reyna Catalan MD [address] [place] [id number] Social History Tobacco Use Types Packs/Day Years [...] encounter Miscellaneous Notes * Telephone Encounter - Ankit Orozco - 01/20/2023 9:33 AM ESTFrom: Renee Neri To: Paul Loya Sent: 01/19/2023 11:53 PM EST Subject: Appointment tomorrow Evangelista, I just wanted to let you know that I have [id number] coverage on my [employer] insurance, so there should not be any problem with my appointment on January 20 or on February 17. Thank you, Alicja Neri documented in this encounter Plan of Treatment Not on file documented as of this encounter Visit Diagnoses Not on filedocumented in this encounter Care Teams Loadmaster Relationship Specialty Start Date End Date Reyna Catalan MD [address] [place] [phone] PCP - General Internal Medicine 09/27/21 06/12/[address] [id number] PCP - General Internal Medicine 06/13/23 documented as of this encounter
--- OUTSIDE RECORDS SUMMARY | 2024-11-27 10:27 | XMS_ITS | Encounter Summary ---
Author Organization [facility] Address [address] [place] [address] Care Team Providers Care Dough Braker Name Role Phone Nguyen Banks MD Primary Care Provider Saravanan Beckett MD Primary Care Provider [phone] Reyna Catalan MD Primary Care Prov ider Evan Cervantes Primary Care Provider [phone] [facility], Pcp Primary Care Provider Angelina gonzalez Encounter Details Date Type Department Care Team Description 08/26/2016 Maintenance Shop Clerk Report Medical Records [address] [place] [id number] Rehab, [facility] [address] [place] [address] Social History Tobacco Use Types Packs/Day Years [...] on filedocumented in this encounter Care Teams Dough Braker Relationship Specialty Start Date End Date Nguyen Banks MD PCP - General Internal Medicine 02/26/15 06/03/20 Saravanan Velarde MD [address] [place] [address] [phone] PCP - General Internal Medicine 06/04/20 09/06/21 Reyna Catalan MD [address] [place] [address] [phone] PCP - General Internal Medicine 09/27/21 06/12/23 Evan Cervantes [address] [place] [address] PCP - General Internal Medicine 09/07/21 09/26/21 [facility], Faith [address] [place] [id number] PCP - General Internal Medicine 06/13/23 documented as of this encounter
--- OUTSIDE RECORDS SUMMARY | 2024-11-27 10:27 | XMS_ITS | Encounter Summary ---
Author Organization [facility] Address [address] [place] [address] Care Team Providers Care Barber Shop Manager Name Role Phone Nguyen Banks MD Primary Care Provider Saravanan Beckett MD Primary Care Provider Reyna Catalan MD Primary Care Prov ider Evan Cervantes Primary Care Provider [phone] [facility], Pcp Primary Care Provider Unavailalexis gonzalez Reason for Visit * Reason Onset Date Comments refill request 10/05/2016 Encounter Details Date Type Department Care Team Description 10/05/2016 Refill [facility] [address] [place], [place] [phone] Brenda Santoro MD refill request Social History [...] EDT WHEN WAS THE 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 Post 11/17/15 Does patient have an [...] Payor: KAVITA / Plan: PPO $0 [id number] / Product Type: PPO [id number] documented in this encounter Plan of Treatment Not on file documented as of this encounter Visit Diagnoses Diagnosis Surveillance of previously prescribed contraceptive method Contraceptive surveillance, unspecified documented in this encounter Care Teams Barber Shop Manager Relationship Specialty Start Date End Date Nguyen Banks MD PCP - General Internal Medicine 02/26/15 06/03/20 Saravanan Velarde MD [address] [place] [address] PCP - General Internal Medicine 06/04/20 09/06/21 Reyna Catalan MD [address] [place] [id number] PCP - General Internal Medicine 09/27/21 06/12/23 Evan Cervantes [address] [place] [id number] PCP - General Internal Medicine 09/07/21 09/26/21 Faith Stephens [address] [place] [id number] PCP - General Internal Medicine 06/13/23 documented as of this encounter
--- OUTSIDE RECORDS SUMMARY | 2024-11-27 10:27 | XMS_ITS | Encounter Summary ---
Author Organization [facility] Address [address] [place] [address] Care Team Providers Care Fishing Vessel Mate Name Role Phone Saravanan Velarde MD Primary Care Provider [phone] Reyna Catalan MD Primary Care Prov ider Evan Cervantes Primary Care Provider [phone] [facility], Pcp Primary Care Provider Unavailabl e Reason for Visit * Reason Onset Date Comments refill request 11/19/2020 Encounter Details Date Type Department Care Team Description 11/19/2020 Refill OBGYN - [address] [address] Albert Hopkins DO refill request Social History Tobacco Use [...] EDT WHEN WAS THE 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 02/06/2021 Does patient have an upcoming [...] Payor: KAVITA / Plan: PPO $0 WANDA [id number] / Product Type: PPO [id number] documented in this encounter Plan of Treatment Not on file documented as of this encounter Visit Diagnoses Diagnosis Encounter for surveillance of injectable contraceptive Surveillance of other previously prescribed contraceptive method documented in this encounter Care Teams Fishing Vessel Mate Relationship Specialty Start Date End Date Saravanan Velarde MD [address] [place] [address] PCP - General Internal Medicine 06/04/20 09/06/21 Reyna Catalan MD [address] [place] [address] PCP - General Internal Medicine 09/27/21 06/12/23 Evan Cervantes [address] [place] [address] PCP - General Internal Medicine 09/07/21 09/26/21 Faith Stephens [address] [place] [address] PCP - General Internal Medicine 06/13/23 documented as of this encounter
--- OUTSIDE RECORDS SUMMARY | 2024-11-27 10:27 | XMS_ITS | Encounter Summary ---
Author Organization [facility] Address [address] [place] [address] Care Team Providers Care Patient Portal Concierge Name Role Phone Reyna Catalan MD Primary Care Prov ider [facility], [facility]cp Primary Care Provider Unavailabl e Reason for Visit * Reason Onset Date Comments Faxed Refill 10/01/2021 Encounter Details Date Type Department Care Team Description 10/01/2021 Refill Adult Medicine [address] [address] Raissa Peterson PA-C Faxed Refill Social History [...] the RX # listed on the fax? [id number] Patients current insurance carrier is: Payor: KAVITA / Plan: PPO $0 WANDA [id number] / Product Type: PPO [id number] documented in this encounter Plan of Treatment Not on file documented as of this encounter Visit Diagnoses Not on filedocumented in this encounter Care Teams Patient Portal Concierge Relationship Specialty Start Date End Date Reyna Catalan MD [address] [place] [address] PCP - General Internal Medicine 09/27/21 06/12/23 [facility] Pcp [address] [place] [phone] PCP - General Internal Medicine 06/13/23 documented as of this encounter
--- OUTSIDE RECORDS SUMMARY | 2024-11-27 10:27 | XMS_ITS | Encounter Summary ---
Author Organization [facility] Address [address] [place] [address] Care Team Providers Care Cryptographic Machine Operator Name Role Phone Nguyen Banks MD Primary Care Provider Saravanan Beckett MD Primary Care Provider [phone] Reyna Catalan MD Primary Care Prov ider Evan Cervantes Primary Care Provider [phone] [facility], Pcp Primary Care Provider Angelina gonzalez Encounter Details Date Type Department Care Team Description 04/10/2019 Orders Only GAME DESIGN INSTRUCTOR - [address] [address] Pau Simeon CNM [address] [place] [address] Encounter for surveillance of injectable [...] method documented in this encounter Care Teams Cryptographic Machine Operator Relationship Specialty Start Date End Date Nguyen Banks MD PCP - General Internal Medicine 02/26/15 06/03/20 Saravanan Velarde MD [address] [place] [address] [phone] PCP - General Internal Medicine 06/04/20 09/06/21 Reyna Catalan MD [address] [place] [address] PCP - General Internal Medicine 09/27/21 06/12/23 Evan Cervantes [address] [place] [address] PCP - General Internal Medicine 09/07/21 09/26/21 [facility], Pcp [address] [place] [phone] PCP - General Internal Medicine 06/13/23 documented as of this encounter
--- OUTSIDE RECORDS SUMMARY | 2024-11-27 10:27 | XMS_ITS | Clinical Summary ---
Author Organization [facility] Address [address] [place] [address] Care Team Providers Care Wood Boat Builder Supervisor Name Role Phone [facility], Pcp Primary Care Provider Unavailabl e Allergies Active Allergy Reactions Severity Noted Date Comments Fish 06/24/2005 Nuts 06/24/2005 Medications Medication Sig Dispensed Refills Start Date End Date Status Multiple Vitamin (MULTI-VITAMIN) TABS Take by mouth. 0 Active ALBUTEROL by Does not apply route. 0 Active clobetasol (TEMOVATE) 0.05 % cream apply bid to affected areas 80 g 5 04/22/2016 Active Cholecalciferol (VITAMIN D OR) Take by mouth. 0 Active medroxyPROGESTERone (DEPO-PROVERA) 150 MG/ML injectionIndications: Encounter for surveillance of injectable contraceptive Inject 1 mL into the muscle Every 3 Months. 1 mL 3 03/11/2022 Active escitalopram (LEXAPRO) 10 MG tablet TAKE 1/2 TABLET BY MOUTH DAILY FOR 7 DAYS AND THEN INCREASE TO 1 TABLET DAILY 0 12/22/2022 Active atenolol (TENORMIN) 50 MG tablet Take 1 Tablet by mouth daily. 90 Tablet 1 01/20/2023 Active EPINEPHrine (EpiPen 2-John) 0.3 MG/0.3ML Solution Auto-injector Inject 1 Applicator as directed once as needed for Other (anaphylaxis) for up to 1 dose. 1 Each 0 01/20/2023 Active Active Problems Problem Noted Date Encounter for surveillance of injectable contraceptive 02/08/2020 Last Assessment & Plan: I discussed potential adverse effect on bone mineral density with long-term Depo Provera use as patient has been on Depo for 4 years. Discussed alternative contraceptive options. Patient declines alternative options at this time and expressed understanding of risks. Plan to continue with Depo Provera for contraception. Essential hypertension 02/03/2020 Anxiety 02/03/2020 DDD (degenerative disc disease), lumbar 08/15/2016 Family history of diabetes mellitus 05/2012 Overview: 12/31/2012 early trutol ordered ECZEMA, 03/13/2006 Mild intermittent asthma 01/09/2006 Overweight 01/09/2006 Resolved Problems Problem Noted Date Resolved Date Gestational diabetes mellitus in second trimeste r 04/13/2015 07/31/2015 Gestational diabetes mellitus, class A1 03/24/19 16 11/17/2015 Overview: 03/24/15: abnormal 1 hour at IP visit. 04/10/15: abnormal 3 hour GTT 1 HR GLUCOSE 206 (H) <180 mg/dL Final 2 HR GLUCOSE 193 (H) <155 mg/dL Final 3 HR GLUCOSE 112 <140 mg/dL Final FASTING GLUCOSE 88 70-100 mg/dL Final MFM consult [facility] Endocrine AMA (advanced maternal age) multigravida 35+ 11/17/2015 Chronic hypertension in obstetric context in fir st trimester 03/20/2015 11/17/2015 Overview: Started on ASA 81mg. Baseline labs wnl. 24 hour protein 93 at IP. Andrés Velarde MD Supervision of high-risk pre gnancy of elderly multigravida (>= 35 years old at time of delivery) 03/11/2015 11/17/2015 Overview: Denies travel outside [place] (05/19/15) 1. [facility] site: [place] 2. Delivery site: [facility] 3. Dating criteria: LMP only 3. Blood type: O+ 4. Genetic screening: Declined 5. GBS: Date: 6. FOB name: Galo 7. Plans A. Epidural or other pain management - plans epidural B. Labor support identified - Galo Kruger Tdap - Date: 09/09/15 D. Breast or Bottle feed: breast E. Baby's name - Penny Rowe Circumcision - n/a (girl baby) [facility] [place] update Group B Streptococcus pallavi r, +RV culture, currently 06/11/2013 08/14/2013 Overview: Patient will require antibiotics in labor. choroid plexus cysts a ffecting antepartum care of mother 02/04/2013 08/14/2013 Overview: 02/04/2013 Noted on survey 02/18/2013 Patient declines further genetic testing. Will follow up with 3rd trimester sono. Elevated glucose tolerance test 01/14/2013 08/14/2013 Overview: 01/14/2013 Early GCT: 170 01/28/2013 3 hour GTT: 1 abnormal value 04/22/2013 3 hour GTT at 28 weeks normal Supervision of normal first 12/31/2012 08/14/2013 Overview: 1) [facility]: office: [place] Chart sent to hospital on the following dates: 1st trimester 12/31/2012 2nd trim After GTT 05/21/2013 After GBS 2) Blood Type: O positive 3) GBS: POSITIVE Date: 06/06/2013 4) [place] Screen: 12/31/2012 Declines 5) Plans: Pain relief plans: Natural, open to options Early labor support identified: Flu Vaccine: 12/07/12 TDap: 05/21/2013 Feeding Plans: Breast Pedi: RBMG PP BCM: Pill Baby Name: Gabby Circumcision: N/A FOB name: Min Advanced maternal age in 12/31/2012 08/14/2013 Immunizations Name Administration Dates Next Due COVID-19 (Pfizer) 11/26/2021, 1,07/02/2020,2020 Influenza (> 6 Months) 12/13/2018,11/12/2014, Influenza (>6 Months) Split Preservative Free 11/17/2015,12/07/2012 Influenza Flu (PT Reported) 11/28/2022 Influenza H1N1 Pandemic Flu Vaccine 04/14/2009 Influenza Vaccine-preservati ve Free-quadrivalent 4 Years 11/25/2016 Influenza Vaccine-quadrivale nt 4 Years Plus 12/08/2017 TD (STATE SUPPLIED FOR ADULT S AND CHILDREN) 09/28/1999 Tdap 09/09/2015,05/21/2013,04/14/2009 Family History Medical History Relation Name Comments No Known Problems Daughter 1 Gabby No Known Problems Daughter 2 Penny Hypertension Father DM, CVA CA of Bladder Maternal Grandfather HTN Hypertension Maternal Grandfather CA Colon Maternal Grandmother arthrit is Uterine Cancer Mother DM, macular d egeneration, kidney stones No Known Problems Paternal Grandfather un known Primary lateral sclerosis Paternal Grandmother No Known Problems Sister CA Breast Negative Hx CA Ovarian Negative Hx Cancer of Small Bowel Negative Hx Cancer of the Pancreas Negative Hx Cancer of the Renal Cell Negative Hx Relation Name Status Comments Daughter 1 Gabby Alive Daughter 2 Penny Alive Father Alive Maternal Grandfather (Age 98) Maternal Grandmother Mother (Age 67) Paternal Grandfather Other Paternal Grandmother Sister Alive Social History Tobacco Use Types Packs/Day Years Used Date Smoking Tobacco: Never Smokeless Tobacco: Never Tobacco Cessation:Counseling Given: Not Answered Alcohol Use Standard Drinks/Week Comments No 0 (1 standard drink = 0.6 oz pur e alcohol) Sex Assigned at Date Recorded Not on file Job Start Date Occupation Industry Not on file Not on file Not on file Last Filed Vital Signs Vital Sign Reading Time Taken Comments Blood Pressure 134/80 02/17/2023 2:11 PM EST Pulse 77 02/17/2023 2:11 PM EST Temperature 36.9 C (98.4 F) 01/20/2023 12:06 PM EST Respiratory Rate 14 01/20/2023 12:06 PM EST Oxygen Saturation 98% 10/11/2021 3:26 PM EDT Inhaled Oxygen Concentration - - Weight 74.4 kg (164 lb) 01/20/2023 12:06 PM EST Height 165.1 cm (5' 5 ) 01/20/2023 12:06 PM EST Body Mass Index 27.29 01/20/2023 12:06 PM EST Plan of Treatment Health Maintenance Due Date Last Done Comments PNEUMOCOCCAL VACCINE FOR HIG H RISK PATIENTS (#1) 09/22/1994 MAMMOGRAM 11/26/2023 11/25/2022, 04/28, 04/29/2022, Additional history exists BMI CHECK/ADVISE 02/28/2024 01/20/2023, , 03/11/2022, Additional history exists BASELINE HEALTH EXAM 40-64 07/22/202407/22, 08/24/2020, 07/27/2018, Additional history exists Covid-19 Vaccine ( - 2022-2 4 season) 2024 11/26/2021, 02/13/2021, 07/02/2020, Additional history exists INFLUENZA (#1) 2024 11/28/2022, 11/27, 12/13/2018, Additional history exists DTAP/TDAP/TD (4 - Td or Tdap) 09/08/2025, 05/21/2013, 04/14/2009, Additional history exists CERVICAL CANCER SCREENING 03/05/20262021, 11/25/2016, 10/21/2011, Additional history exists CHOLESTEROL SCREENING 12/01/2026 12/01/2021 , 07/27/2018, 06/21/2017, Additional history exists Care Teams Wood Boat Builder Supervisor Relationship Specialty Start Date End Date Community, Pcp PCP - General Internal Medicine 06/13/23
--- OUTSIDE RECORDS SUMMARY | 2024-11-27 10:27 | XMS_ITS | Encounter Summary ---
Author Organization [facility] Address [address] [place] [address] Care Team Providers Care Patient Placement Coordinator Name Role Phone Nguyen Banks MD Primary Care Provider Saravanan Beckett MD Primary Care Provider [phone] Reyna Catalan MD Primary Care Prov ider Evan Cervantes Primary Care Provider [phone] [facility], Pcp Primary Care Provider Angelina gonzalez Encounter Details Date Type Department Care Team Description 10/25/2019 Orders Only Radiology - [address] [id number] Nguyen Banks MD Social History Tobacco Use Types Packs/Day Years [...] filedocumented in this encounter Care Teams Patient Placement Coordinator Relationship Specialty Start Date End Date Nguyen Banks MD PCP - General Internal Medicine 02/26/15 06/03/20 Saravanan Velarde MD [address] [place] [address] [phone] PCP - General Internal Medicine 06/04/20 09/06/21 Reyna Catalan MD [address] [place] [address] [phone] PCP - General Internal Medicine 09/27/21 06/12/23 Evan Cervantes [address] [place] [address] PCP - General Internal Medicine 09/07/21 09/26/21 Angelo, Faith [address] [place] [address] PCP - General Internal Medicine 06/13/23 documented as of this encounter
--- OUTSIDE RECORDS SUMMARY | 2024-11-27 10:27 | XMS_ITS | Encounter Summary ---
Author Organization [facility] Address [address] [place] [address] Care Team Providers Care Pail Tester Name Role Phone Nguyen Banks MD Primary Care Provider Saravanan Beckett MD Primary Care Provider [phone] Reyna Catalan MD Primary Care Prov ider Evan Cervantes Primary Care Provider [phone] [facility], Pcp Primary Care Provider Angelina gonzalez Encounter Details Date Type Department Care Team Description 03/16/2015 Release of Information Medical Records [address] [place] [id number] Abstract, Provider Social History Tobacco Use Types [...] on filedocumented in this encounter Care Teams Pail Tester Relationship Specialty Start Date End Date Nguyen Banks MD PCP - General Internal Medicine 02/26/15 06/03/20 Saravanan Velarde MD [address] [place] [address] PCP - General Internal Medicine 06/04/20 09/06/21 Reyna Catalan MD [address] [place] [phone] PCP - General Internal Medicine 09/27/21 06/12/23 Evan Cervantes [address] [place] [address] PCP - General Internal Medicine 09/07/21 09/26/21 [facility], Pcp [address] [place] [phone] PCP - General Internal Medicine 06/13/23 documented as of this encounter
--- OUTSIDE RECORDS SUMMARY | 2024-11-27 10:27 | XMS_ITS | Encounter Summary ---
Author Organization [facility] Address [address] [place] [address] Care Team Providers Care Computer Operator Name Role Phone Reyna Catalan MD Primary Care Prov ider [facility], Pcp Primary Care Provider Unavailabl e Reason for Visit * Reason Comments E-prescribe Rx Request Encounter Details Date Type Department Care Team Description 05/22/2023 Refill Adult Medicine [facility] [address] [place] [address] Reyna Catalan MD [address] [place] [address] E-prescribe Rx Request Social History Tobacco Use [...] Payor: KAVITA / Plan: PPO $0 WANDA [id number] / Product Type: PPO [id number] documented in this encounter Plan of Treatment Not on file documented as of this encounter Visit Diagnoses Not on filedocumented in this encounter Care Teams Computer Operator Relationship Specialty Start Date End Date Reyna Catalan MD [address] [place] [address] PCP - General Internal Medicine 09/27/21 06/12/[address] [address] PCP - General Internal Medicine 06/13/23 documented as of this encounter
--- OUTSIDE RECORDS SUMMARY | 2024-11-27 10:27 | XMS_ITS | Encounter Summary ---
Author Organization [facility] Address [address] [place] [address] Care Team Providers Care Hide Measuring Machine Operator Name Role Phone Nguyen Banks MD Primary Care Provider Saravanan Beckett MD Primary Care Provider [phone] Reyna Catalan MD Primary Care Prov ider Evan Cervantes Primary Care Provider [phone] [facility], Pcp Primary Care Provider Angelina gonzalez Encounter Details Date Type Department Care Team Description 06/25/2015 [place] Resistance Report Medical Records [address] [place] [address] Raheel Ayala Social History Tobacco Use Types Packs/Day Years [...] on filedocumented in this encounter Care Teams Hide Measuring Machine Operator Relationship Specialty Start Date End Date Nguyen Banks MD PCP - General Internal Medicine 02/26/15 06/03/20 Saravanan Velarde MD [address] [place] [address] [phone] PCP - General Internal Medicine 06/04/20 09/06/21 Reyna Catalan MD [address] [place] [address] [phone] PCP - General Internal Medicine 09/27/21 06/12/23 Evan Cervantes [address] [place] [address] PCP - General Internal Medicine 09/07/21 09/26/21 [facility], Pcp [address] [place] [address] PCP - General Internal Medicine 06/13/23 documented as of this encounter
--- OUTSIDE RECORDS SUMMARY | 2024-11-27 10:27 | XMS_ITS | Encounter Summary ---
Author Organization [facility] Address [address] [place] [address] Care Team Providers Care Manager Name Role Phone Jack Seymour MD Primary Care Provider Unavail able Nguyen Banks MD Primary Care Provider UnavailSaravanan Gallardo MD Primary Care Provider [phone] Reyna Catalan MD Primary Care Prov ider Evan Cervantes Primary Care Provider [phone] [facility] Encounter Details Date Type Department Care Team Description 06/30/2013 [facility] Medical Records [address] [place], [place] [phone] [facility] Social History Tobacco Use Types Packs/Day Years [...] on filedocumented in this encounter Care Teams Manager Relationship Specialty Start Date End Date Jack Seymour MD PCP - General 11/27/1994 02/25/15 Nguyen Banks MD PCP - General Internal Medicine 02/26/15 06/03/20 Saravanan Velarde MD [address] [place] [address] [phone] PCP - General Internal Medicine 06/04/20 09/06/21 Reyna Catalan MD [address] [place] [phone] PCP - General Internal Medicine 09/27/21 06/12/23 Evan Cervantes [address] [place], [place] [phone] PCP - General Internal Medicine 09/07/21 09/26/21 [facility], Pcp [address] [place] [address] PCP - General Internal Medicine 06/13/23 documented as of this encounter
--- OUTSIDE RECORDS SUMMARY | 2024-11-27 10:27 | XMS_ITS | Encounter Summary ---
Author Organization [facility] Address [address] [place] [address] Care Team Providers Care Home Child Care Provider Name Role Phone Nguyen Banks MD Primary Care Provider Saravanan Beckett MD Primary Care Provider [phone] Renya Catalan MD Primary Care Prov ider Evan Cervantes Primary Care Provider [phone] [facility], Pcp Primary Care Provider Angelina gonzalez Encounter Details Date Type Department Care Team Description 05/28/2015 Zika Virus Medical Records [address] [place] [address] Abstract, Provider Social History Tobacco Use Types [...] on filedocumented in this encounter Care Teams Home Child Care Provider Relationship Specialty Start Date End Date Nguyen Banks MD PCP - General Internal Medicine 02/26/15 06/03/20 Saravanan Velarde MD [address] [place] [address] PCP - General Internal Medicine 06/04/20 09/06/21 Renya Catalan MD [address] [place] [address] PCP - General Internal Medicine 09/27/21 06/12/23 Evan Cervantes [address] [place] [phone] PCP - General Internal Medicine 09/07/21 09/26/21 [facility], Pcp [address] [place] [address] PCP - General Internal Medicine 06/13/23 documented as of this encounter
--- OUTSIDE RECORDS SUMMARY | 2024-11-27 10:27 | XMS_ITS | Encounter Summary ---
Author Organization [facility] Address [address] [place] [address] Care Team Providers Care Supervisor Fish Processing Name Role Phone Nguyen Banks MD Primary Care Provider Saravanan Beckett MD Primary Care Provider Reyna Catalan MD Primary Care Prov ider Evan Cervantes Primary Care Provider [phone] [facility]cp Primary Care Provider Angelina gonzalez Encounter Details Date Type Department Care Team Description 06/09/2015 Directory Assistance Operator Report Medical Records [address] [place] [address] Mckinley Menendez [address] [place] [address] [phone] Social History Tobacco Use Types Packs/Day Years [...] filedocumented in this encounter Care Teams Supervisor Fish Processing Relationship Specialty Start Date End Date Nguyen Banks MD PCP - General Internal Medicine 02/26/15 06/03/20 Saravanan Velarde MD [address] [place] [address] [phone] PCP - General Internal Medicine 06/04/20 09/06/21 Reyna Catalan MD [address] [place] [address] PCP - General Internal Medicine 09/27/21 06/12/23 Evan Cervantes [address] [place] [address] [phone] PCP - General Internal Medicine 09/07/21 09/26/21 [facility] Pcp [address] [place] [phone] PCP - General Internal Medicine 06/13/23 documented as of this encounter
== END 2024-11-27 10:19 | disposition home or self-care (01) ==
LOC: HO.HMCFM 09:34
PROVIDERS: PCP Family Medicine; Visit Provider Family Medicine
DX: I10 Essential (primary) hypertension (principal); R73.03 Prediabetes; E78.00 Pure hypercholesterolemia, unspecified; G24.5 Blepharospasm

== ENCOUNTER → 2024-11-27 09:34 | Outpatient (BNVA) | payer OTHER, SELFPAY | PROVIDERS: PCP Family Medicine; Visit Provider Family Medicine | DX: I10 Essential (primary) hypertension (principal); R73.03 Prediabetes; E78.00 Pure hypercholesterolemia, unspecified; G24.5 Blepharospasm | CPT/HCPCS: 83036; 96127 ==

== ENCOUNTER 2025-01-03 12:54 | Outpatient (AMB) | payer OTHER, SELFPAY ==
--- NOTE | 2025-01-03 12:56 | A.OFFVIS_ITS ---
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 She had been on Depo for a long time and it we had discussed changing it to another method but she had wanted to stay on the Depo however at her last visit with Dr. Ferreira there was another discussion about the same issue and he recommended placing the Mirena and she had it placed in October. She has an appointment to check it in March but she is hoping she does not need to come to that because she is being seen today. She has not been getting her periods since the Mirena was placed she was very anxious about having it placed and was nervous about it. She has noticed her breasts being tender this week that remind her of when she is going to get her periods so she is wondering if she is going to get 1.. She has been working on high blood pressure management and being a little bit borderline for diabetes so she is following up with her primary and trying to eat well and preempt these situations [facility] Medical History Depression Anxiety Acute eczema Gestational diabetes Arthritis High blood pressure Asthma Surgical History [place] teeth extracted Family History Mother Diabetes Endometrial cancer Father High blood pressure High cholesterol Diabetes Maternal Grandmother Colon cancer Social History Household Members: Spouse and Children Housing: House Are you a primary primary health care nurse to a significant other at home: No Do you presently have visiting nurse or other home services: No 75 years or older and lives alone: No Alcohol intake: never Patient Tobacco Use Status: Never used Tobacco e-Cigarette/Vaping Use: Never Used Second Hand Smoke Exposure: No service: No Current occupational status: employed Current occupation: book keeper Current occupational exposures/hazards: No Cognitive needs: No Hearing needs: No Vision needs: No Female Reproductive History Menstrual Age of Menarche: 12 control method: progestin IUCD (Mirena ) Total pregnancies: 2 Full term: 2 Date of last pap smear: 06/07/23 (negative pap smear, negative hpv) Date of Mammogram: 05/29/24 (bi rad 1) Physical Exam Vital Signs: Last Vital Signs BP 120/68 01/03/25 13:05 BMI result Body Mass Index 27.3 Const General: healthy appearing, comfortable, no acute distress, well developed and alert Nutritional Appearance: average body habitus Orientation/consciousness: patient oriented x3 Limitations: no limitations HEENT Head: Yes normocephalic Neck Neck: Yes normal visual inspection Chest Chest palpation & inspection: normal inspection of the chest Breast/axilla inspection: normal inspection of the breasts and normal inspection of the axillae Breast/axilla palpation: normal palpation of the breasts and normal palpation of the axillae Resp Effort & Inspection: normal respiratory effort GI Inspection: Yes normal to inspection, No Abdominal wall edema and No distended Palpation (GI): Soft to palpation and nontender Other: External exam within normal limits vagina is pink and moist with healthy appearing mucosa and clear mucus cervix is multiparous pink smooth healthy appearing, with Mirena string extending about 2-3 cm. Cervix is long close thick mobile nontender uterus midposition mobile nontender adnexa nontender and patient has fair tone with Kegel coached in strengthening my Kegel contraction and recommend practicing throughout the day various opportunities. General: Yes bladder normal to palpation External Female Exam: normal external appearance and normal appearance of the urethra Speculum Exam - Vagina: normal appearance of the vagina, normal palpation and normal vaginal discharge Speculum Exam - Cervix: normal appearance of the cervix, normal palpation and nontender Bimanual exam- vagina & uterus: normal bimanual exam, normal palpation, uterine size normal, bladder normal to palpation, consistency normal, normal palpation, uterine mobility normal, uterine shape normal, No Cervical tenderness present, non-tender and no cervical motion tenderness Bimanual Exam- Adnexa, other: normal adnexae, no masses, normal and No adnexal tenderness Neuro General: patient oriented x3 Results Reviewed Results Reviewed: Name: Renee Neri Age/Sex: 47/F Attending: Bettina Harris CNM : 1975 Submitted by: Bettina Harris CNM Copies to: Thiago Machado MD MR #: [id number] Status: DEP REF Collected: 06/07/23 Location: .LAB Received: 06/13/23 Interpretation Satisfactory for evaluation. Negative for intraepithelial lesion or malignancy. Moderate inflammation. HPV mRNA E6/E7: NOT DETECTED This assay detects E6/E7 viral messenger RNA (mRNA) from 14 high-risk HPV types (16, 18, 31, 33, 35, 39, 45, 51, 52, 56, 58, 59, 66, 68) HPV testing performed by [employer] [facility], [place], [place]. See reference laboratory portion of the EMR for entire report. Clinical Information LMP: No LMP (depo inj.) Previous PAP test: 2021, WNL Material Received ThinPrep-Cervical Copies To Thiago Machado MD [address] [facility]. [place], [place] [id number] Bettina Harris CNM [address] [place] [address] [address]da [address] [address] Electronically Signed By: An Esquivel 06/25/23 1237 The Pap Test is a screening procedure with the inherent possibility of both false negative and false positive results. Results should be interpreted in the context of historic and current clinical findings. Reliabil ity of the Pap Test is enhanced by performing the test on a regular repetitive basis. Patient: Renee Neri Age/Sex: 47/F Acct#: MC Patient: Renee Neri MR#: [id number] : 1975 Acct:[id number] Age/Sex: 48 / F ADM Date: 05/29/24 Loc: HO.MAMMO Attending Dr: Thiago Machado MD Ordering Physician: Thiago Machado MD Results: 1Negative Date of Service: 05/29/24 Follow Up: 1 Year From Original Mammogram Procedure(s): MM tomosynthesis screening BI Accession Number(s): [id number] cc: Thiago Machado MD~ EXAMINATION: MM SCREENING DIGITAL BREAST TOMOSYNTHESIS, BILATERAL CLINICAL INFORMATION: Screening. Asymptomatic. COMPARISON: Mammography: Comparison is made with available priors TECHNIQUE: Digital breast mammography with tomosynthesis is performed in both the craniocaudal and mediolateral oblique views along with computer-aided detection (CAD). FINDINGS: The breasts are heterogeneously dense, which may obscure small masses (ACR BI-RADS breast composition Category c). There are no significant masses, abnormal calcifications, or other abnormalities. MM/MM tomosynthesis screening BI IMPRESSION: No mammographic evidence of malignancy. ASSESSMENT: BI-RADS BI-RADS 1 - Negative RECOMMENDATION: Routine annual mammography screening. 1 year F/U This examination should not preclude the clinical evaluation of a suspicious palpable abnormality. This patient's information was entered into a reminder system with a target due date for their next mammogram. Electronically signed by: Esther Lancaster DO 06/03/2024 04:42 PM EDT Dictated By: Esther Lancaster DO Signed By: <Electronically signed by Esther Lancaster DO in OV> 06/03/24 1642 DD/ 1140 TD/TT: 05/29/24 1150 Qa Reviewer: Assessment & Plan Assessment & Plan (1) Well woman exam with routine gynecological exam: Code(s): Z01.419 - Encounter for gynecological examination (general) (routine) without abnormal findings Category: Medical (2) Cervical cancer screening: Comment: Pap done 06/07/2023= negative with negative HPV. Code(s): Z12.4 - Encounter for screening for malignant neoplasm of cervix Category: Medical (3) Breast cancer screening by mammogram: Code(s): Z12.31 - Encounter for screening mammogram for malignant neoplasm of breast Category: Medical (4) Encounter for routine checking of intrauterine contraceptive device (IUD): Code(s): Z30.431 - Encounter for routine checking of intrauterine contraceptive device Category: Medical Plan -----Discussed in this visit the following: healthy balanced diet, regular and consistent exercise, getting recommended health screens, doing the best she can for her particular health concerns, kegel exercises, pap smear screening and followup recommendations, mammography screening and SBE, normal changes in cycles in her life stage--- . Reviewed the Mirena and the range of experiences women have in terms of menses and amenorrhea. Discussed that it was a very good decision that she came to as she had been on the Depo-Provera for a long time as had been discussed at the previous visits. Discussed that she can still have various degrees of menses but also secondary symptoms such as breast tenderness mood changes etc.. She is up-to-date on her mammograms and sees her primary every 3 months. patient has fair tone with Kegel , coached in strengthening my Kegel contraction and recommend practicing throughout the day various opportunities. Coding Level of Care Code Est Pt Prev Care 40-64y(37542) Diagnoses Well woman exam with routine gynecological exam Z01.419 Cervical cancer screening Z12.4 Breast cancer screening by mammogram Z12.31 Encounter for routine checking of intrauterine contraceptive device (IUD) Z30.431
[2025-01-03 13:05] VITALS: BP 120/68; BMI 27.3
== END 2025-01-03 13:39 | disposition home or self-care (01) ==
LOC: HO.HWS 12:54
PROVIDERS: PCP Family Medicine; Visit Provider Advanced Practice Midwife
DX: Z01.419 Encounter for gynecological examination (general) (routine) without abnormal findings (principal); Z12.4 Encounter for screening for malignant neoplasm of cervix; Z12.31 Encounter for screening mammogram for malignant neoplasm of breast; Z30.431 Encounter for routine checking of intrauterine contraceptive device
CPT/HCPCS: 99396; 99459